=== PATIENT | male | born 1985 | race Caucasian/White ===

== ENCOUNTER 2016-10-15 18:03 | Inpatient (IN) | payer MEDICAID ==
[2016-10-15 18:03] VITALS: BMI 21.4
[2016-10-15] MEDS ORDERED: Sodium Chloride 0.9% 1,000 ML ONE (18:50)
[2016-10-15] MEDS ORDERED: Sodium Chloride 0.9% 1,000 ML IV ONE ×2 (18:57→19:52)
[2016-10-15 19:06] LABS: BASO % 0.2 % (0.0-2.0); HEMATOCRIT 46.2 % (35.0-51.0); LYMPH # 1.2 K/uL (1.0-4.3); LYMPH % 9.2 % (20.0-40.0); MEAN CELL VOLUME 89.6 fL (80.0-94.0); MEAN CORPUSCULAR HEMOGLOBIN 28.9 pg (27.0-31.0); MEAN CORPUSCULAR HGB CONC 32.2 g/dL (33.0-37.0); MEAN PLATELET VOLUME 10.4 fL (7.2-11.7); MONO # 0.3 K/uL (0.0-0.8); MONO % 2.5 % (0.0-10.0); PLATELET COUNT 298 K/uL (130-400); RED CELL DISTRIBUTION WIDTH 14.4 % (11.5-14.5)
[2016-10-15 19:15] LABS: CHLORIDE 93 mmol/L (98-107); SODIUM 138 mmol/L (132-148)
[2016-10-15 19:16] LABS: INR 1.1; POTASSIUM 4.9 mmol/L (3.6-5.2)
[2016-10-15 19:17] LABS: AST/SGOT 25 U/L (17-59); BILIRUBIN,TOTAL 1.3 mg/dL (0.2-1.3); CARBON DIOXIDE 22 mmol/L (22-30); GFR AFRICAN-AMERICAN > 60
[2016-10-15 19:18] LABS: ALB/GLOB RATIO 1.7 (1.0-2.1); ALKALINE PHOSPHATASE 108 U/L (38-126); ALT/SGPT 23 U/L (21-72); BLOOD UREA NITROGEN 34 mg/dL (9-20); CALCIUM 9.4 mg/dl (8.6-10.4); MAGNESIUM 2.2 mg/dL (1.6-2.3); PHOSPHOROUS 4.6 mg/dL (2.5-4.5); TOTAL PROTEIN 8.6 g/dL (6.3-8.3)
[2016-10-15 19:19] LABS: ALCOHOL SERUM < 10 mg/dl (0-10)
[2016-10-15 19:20] LABS: GLUCOSE,RANDOM 501 mg/dL (75-110)
[2016-10-15 19:30] LABS: NEUTROPHIL 91 % (50-75); TOTAL CELLS COUNTED 100
[2016-10-15] MEDS ORDERED: (Novolin R) Insulin Human Regular 100 units/ml vial IV STA (19:51)
[2016-10-15] MEDS ORDERED: (Novolin R) Insulin Human Regular 100 units/ml vial ONE (20:00)
[2016-10-15 20:31] LABS: ABG ALLEN TEST PO; DRAW SITE LR
[2016-10-15] MEDS ORDERED: Morphine 4 MG/ML VIAL ONE (21:10)
[2016-10-15] MEDS ORDERED: Iodixanol 320 MG/ML 100 ML BOTTLE IV ONE (21:24)
--- NOTE | 2016-10-15 22:18 | CT ---
EXAM: CT Abdomen and Pelvis With Intravenous Contrast CLINICAL HISTORY: 31 years old, male; Pain; Abdominal pain; Generalized TECHNIQUE: Axial computed tomography images of the abdomen and pelvis with intravenous contrast. This CT exam was performed using one or more of the following dose reduction techniques: automated exposure control, adjustment of the mA and/or kV according to patient size, and/or use of iterative reconstruction technique. Coronal and sagittal reformatted images were created and reviewed. CONTRAST: 100 mL of [id number] administered intravenously. COMPARISON: None FINDINGS: Lower thorax: The bilateral lung bases are clear. ABDOMEN: Liver: No acute findings. Gallbladder and bile ducts: The gallbladder is only minimally distended, without calcified stones. No significant intra- or extrahepatic biliary ductal dilation. Pancreas: Enhances homogeneously. No ductal dilation. No discrete mass. Spleen: No acute findings. Adrenals: No acute findings. Kidneys and ureters: No acute findings. No hydronephrosis or renal calculi. No discrete solid mass. PELVIS: Bladder: The bladder is moderately distended, but otherwise unremarkable. Reproductive: No acute findings. Appendix: The appendix is of normal caliber (series 601, image 54; series 2, image 56). ABDOMEN and PELVIS: Stomach and bowel: No obstruction. Fluid-filled small bowel wall thickening but no surrounding inflammation or fluid to confirm an acute enteritis. Peritoneum: No significant fluid collection. No free air. Lymph nodes: No pathologically enlarged lymph nodes. Vasculature: Unremarkable. Bones: No acute fracture. IMPRESSION: Mural thickening within multiple loops of fluid-filled small bowel, without surrounding inflammation or fluid to confirm an enteritis. Normal appendix.
--- NOTE | 2016-10-15 23:16 | C.PDOC ---
Time Seen by Provider: 10/15/16 18:43 Chief Complaint (Nursing): Abdominal Pain History Per: Patient, Family Onset/Duration Of Symptoms: Days (1) Current Symptoms Are (Timing): Still Present Severity: Moderate Location Of Pain/Discomfort: Epigastric Quality Of Discomfort: Unable To Describe, "Pain" Associated Symptoms: Nausea, Vomiting, Diarrhea Exacerbating Factors: Food Alleviating Factors: None Additional History Per: Prior Records Past Medical History Reviewed: Historical Data, Nursing Documentation, Vital Signs Vital Signs: Last Vital Signs Temp 97.9 F 10/15/16 18:12 Pulse 131 H 10/15/16 18:12 Resp 18 10/15/16 18:12 BP 176/73 H 10/15/16 18:12 Pulse Ox 96 10/15/16 18:12 - Medical History PMH: Diabetes, Gastritis, Pancreatitis Surgical History: No Surg Hx, Endoscopy - [facility] Procedures ESOPHAGOGASTRODUODENOSCOPY [EGD] W/CLOSED BIOPSY (07/30/13) Family History: States: Unknown Family Hx, Diabetes - Social History Hx Tobacco Use: Yes Hx Alcohol Use: No Hx Substance Use: No - Immunization History Hx Tetanus Toxoid Vaccination: No Hx Influenza Vaccination: Yes (2014) Hx Pneumococcal Vaccination: No Review Of Systems Except As Marked, All Systems Reviewed And Found Negative. Constitutional: Positive for: Malaise. Negative for: Fever Cardiovascular: Negative for: Chest Pain Respiratory: Negative for: Shortness of Breath, Hemoptysis Gastrointestinal: Positive for: Nausea, Vomiting, Abdominal Pain, Diarrhea. Negative for: Melena, Hematochezia, Hematemesis Genitourinary: Negative for: Dysuria Musculoskeletal: Negative for: Neck Pain, Back Pain Skin: Negative for: Rash Neurological: Negative for: Weakness, Numbness, Seizures, Headache Physical Exam - Physical Exam Appears: In Acute Distress Skin: Normal Color, Warm, Dry, No Rash Head: Atraumatic, Normacephalic Eye(s): bilateral: PERRL, EOMI Oral Mucosa: Dry Neck: Normal ROM, Supple Cardiovascular: Rhythm Regular Respiratory: Normal Breath Sounds, No Accessory Muscle Use Gastrointestinal/Abdominal: Soft, Tenderness, No Distention Back: No CVA Tenderness Extremity: Normal ROM Neurological/Psych: Oriented x3, Normal Motor, Normal Sensation ED Course And Treatment - Laboratory Results Result Diagrams: 10/15/16 19:10/15/16 19:02 Lab Interpretation: Abnormal Interpretation Of Abnormal: Hyperglycemia. O2 Sat by Pulse Oximetry: 96 Pulse Ox Interpretation: Normal - CT Scan/US CT abdomen/pelvis Other Rad Studies (CT/US): Read By Radiologist, Radiology Report Reviewed CT/US Interpretation: IMPRESSION: . Mural thickening within multiple loops of fluid-filled small bowel, without. surrounding inflammation or fluid to confirm an enteritis. Normal appendix. Progress - Interventions Interventions:: Observation, Intravenous fluid - Medications Administered Intravenous: Antiemetic, H-2 marni, Opiate, Other (Insulin) - Data Reviewed Data Reviewed: Lab, Diagnostic imaging, Old records - Patient Status Patient status: Partially improved - Critical Care Citical Care: Excluding Proc Time Critical Care Time: 60 minutes - Continuity of Care Discussed patient case with:: Patient, Family-HIPPA compliant, ED Nurse, On- call PMD-pt unassigned Disposition Discussed With : Marshall Valentine Comment: He accepted pt on his service and gave admission orders to the nurse. Doctor Will See Patient In The: Hospital Counseled Patient/Family Regarding: Studies Performed, Diagnosis - Disposition Disposition: HOSPITALIZED Disposition Time: 23:28 Condition: FAIR - POA Present On Arrival: Poor Glycemic Control - Clinical Impression Clinical Impression: Abdominal pain, Dehydration, Nausea, vomiting, and diarrhea, Hyperglycemia
[2016-10-16] MEDS: (Novolin R) Insulin Human Regular 100 units/ml vial SC SCH ×5 (06:49→22:24)
[2016-10-16 10:13] LABS: RBC URINE < 1 /hpf (0-3); URINE BILIRUBIN NEGATIVE (NEGATIVE); URINE BLOOD NEGATIVE (NEGATIVE); URINE COLOR Straw (YELLOW); URINE GLUCOSE (UA) 3+ mg/dL (Normal); URINE KETONE 2+ mg/dL (NEGATIVE); URINE LEUKOCYTE ESTERASE NEG Leu/uL (Negative); URINE PROTEIN NEGATIVE (NEGATIVE); URINE UROBILINOGEN NORMAL mg/dL (0.2-1.0); WBC URINE < 1 /hpf (0-5)
[2016-10-16] MEDS: Sodium Chloride 0.45% 1,000 ML IV SCH (10:26)
[2016-10-16 11:40] LABS: BASO % 0.3 % (0.0-2.0); HEMATOCRIT 43.5 % (35.0-51.0); LYMPH # 1.7 K/uL (1.0-4.3); LYMPH % 11.8 % (20.0-40.0); MEAN CELL VOLUME 90.9 fL (80.0-94.0); MEAN CORPUSCULAR HEMOGLOBIN 29.4 pg (27.0-31.0); MEAN CORPUSCULAR HGB CONC 32.3 g/dL (33.0-37.0); MEAN PLATELET VOLUME 10.1 fL (7.2-11.7); MONO # 0.9 K/uL (0.0-0.8); MONO % 6.4 % (0.0-10.0); NRBC % 0.1 % (0.0-2.0); RED CELL DISTRIBUTION WIDTH 14.7 % (11.5-14.5); WHITE BLOOD COUNT 14.3 K/uL (4.8-10.8)
[2016-10-16 11:51] LABS: CHLORIDE 100 mmol/L (98-107)
[2016-10-16 11:52] LABS: POTASSIUM 4.3 mmol/L (3.6-5.2); SODIUM 139 mmol/L (132-148)
[2016-10-16 11:54] LABS: ALB/GLOB RATIO 1.4 (1.0-2.1); AST/SGOT 29 U/L (17-59); BILIRUBIN,TOTAL 1.1 mg/dL (0.2-1.3); BLOOD UREA NITROGEN 24 mg/dL (9-20); CARBON DIOXIDE 14 mmol/L (22-30); GFR AFRICAN-AMERICAN > 60; TOTAL PROTEIN 7.3 g/dL (6.3-8.3)
[2016-10-16 11:55] LABS: ALKALINE PHOSPHATASE 104 U/L (38-126); ALT/SGPT 21 U/L (21-72); CALCIUM 8.6 mg/dl (8.6-10.4); GLUCOSE,RANDOM 284 mg/dL (75-110)
--- NOTE | 2016-10-16 11:57 | CP.PCM.CON ---
<Monico Nguyen - Last Filed: 10/16/16 12:57> History of Present Illness - History of Present Illness History of Present Illness: PGY4 GI Fellow Consult Note Patient is a 31yo male with PMHx significant for DM, severe gastroparesis, pancreatitis H pylori gastritis (untreated) who presented to the ED with complaint of abdominal pain. In the days leading up to admission patient admitted to constipation but otherwise felt fine. He does note that 2-3 days prior to admission he began noticing hyperglycemia on finger sticks at home. The day before admission he developed diffuse abdominal cramping, 3-4 episodes of loose watery stool and nausea with nonbloody emesis. As symptoms worsened, he came to the hospital for further evaluation. Earlier this morning, patient was asymptomatic and denied any complaints however on returning to his room with Dr Garvin, he is very uncomfortable in bed and states he again has abdominal pain. He does not take any medications for gastroparesis and does not follow with a GI doctor as an outpatient. Currently, no diarrhea, fever, chills. Denies sick contacts, recent antibiotic use, recent travel. PMHx: See HPI PSHx: Denies FHx: Mother - DM Social: +tobacco use, +EtOH use, denies illicit drug use Endo: 07/2013 - EGD - gastritis with H pylori + on biopsy Review of Systems - Constitutional Constitutional: absent: Anorexia, Chills, Fever, Weight Gain, Weight Loss - EENT Eyes: absent: Change in Vision Nose/Mouth/Throat: absent: Sore Throat - Cardiovascular Cardiovascular: absent: Chest Pain, Diaphoresis, Edema - Respiratory Respiratory: absent: Cough, Dyspnea, Excessive Mucous Production - Gastrointestinal Gastrointestinal: Abdominal Pain, Change in Stool Character, Cramping, Diarrhea , Nausea, Vomiting. absent: Belching, Bloating, Dyspepsia, Dysphagia, Early Satiety, Hematemesis, Hematochezia, Melena - Musculoskeletal Musculoskeletal: absent: Back Pain, Neck Pain - Integumentary Integumentary: absent: New Lesions, Rash - Neurological Neurological: absent: Dizziness, Numbness, Focal Weakness - Psychiatric Psychiatric: absent: Anxiety, Depression - Endocrine Endocrine: absent: Polydipsia, Polyphagia, Polyuria - Hematologic/Lymphatic Hematologic: absent: Easy Bleeding, Easy Bruising, Lymphadenopathy Past Patient History - Tetanus Immunizations Tetanus Immunization: Unknown - Past Medical History & Family History Past Medical History?: Yes - Past Social History Smoking Status: Light Smoker < 10 Cigarettes Daily - CARDIAC Hx Cardiac Disorders: No - PULMONARY Hx Respiratory Disorders: No - NEUROLOGICAL Hx Neurological Disorder: No - HEENT Hx HEENT Problems: No - RENAL Hx Chronic Kidney Disease: No - ENDOCRINE/METABOLIC Hx Endocrine Disorders: Yes Hx Diabetes Mellitus Type 1: Yes (since age of 17) - HEMATOLOGICAL/ONCOLOGICAL Hx Blood Disorders: No - INTEGUMENTARY Hx Dermatological Problems: No - MUSCULOSKELETAL/RHEUMATOLOGICAL Hx Musculoskeletal Disorders: Yes Hx Falls: Yes - GASTROINTESTINAL Hx Gastrointestinal Disorders: Yes Hx Gastritis: Yes Hx Pancreatitis: Yes - GENITOURINARY/GYNECOLOGICAL Hx Genitourinary Disorders: No - PSYCHIATRIC Hx Psychophysiologic Disorder: No Hx Substance Use: No - SURGICAL HISTORY Hx Surgeries: Yes - ANESTHESIA Hx Anesthesia: Yes Hx Anesthesia Reactions: No Hx Malignant Hyperthermia: No Meds Allergies/Adverse Reactions: Allergies Allergy/AdvReac Type Severity Reaction Status Date / Time No Known Allergies Allergy Verified 08/22/15 12:59 - Medications Medications: Current Medications Sodium Chloride (Sodium Chloride 0.45%) 1,000 mls @ 100 mls/hr IV .Q10H JULIANE Last Admin: 10/16/16 10:26 Dose: 100 mls/hr Insulin Glargine (Lantus) 25 unit SC HS JULIANE Insulin Human Regular (Novolin R) 0 unit SC ACHS JULIANE PRN Reason: Protocol Last Admin: 10/16/16 11:47 Dose: 6 unit Metoclopramide HCl (Reglan) 10 mg IVP ACHS JULIANE Morphine Sulfate (Morphine) 2 mg IVP Q6 PRN PRN Reason: for abdominal pain Last Admin: 10/16/16 10:21 Dose: 2 mg Pneumococcal Polyvalent Vaccine (Pneumovax 23 Vaccine) 0.5 ml IM .ONCE ONE Stop: 10/18/16 10:01 Physical Exam - Constitutional Appears: Non-toxic, No Acute Distress - Eye Exam Eye Exam: EOMI, PERRL - ENT Exam ENT Exam: Mucous Membranes Moist - Respiratory Exam Respiratory Exam: Clear to Auscultation Bilateral. absent: Rales, Rhonchi, Wheezes - Cardiovascular Exam Cardiovascular Exam: RRR, +S1, +S2 - GI/Abdominal Exam GI & Abdominal Exam: Normal Bowel Sounds, Soft. absent: Distended, Firm, Guarding, Organomegaly, Rigid, Tenderness - Extremities Exam Extremities exam: Positive for: normal inspection. Negative for: pedal edema - Neurological Exam Neurological exam: Alert, Oriented x3 - Psychiatric Exam Psychiatric exam: Normal Affect, Normal Mood - Skin Skin Exam: Dry, Warm Results - Vital Signs Recent Vital Signs: Last Vital Signs Temp 98.5 F 10/16/16 01:05 Pulse 85 10/16/16 01:05 Resp 20 10/16/16 01:05 BP 132/62 10/16/16 01:05 Pulse Ox 96 10/16/16 01:05 - Labs Result Diagrams: 10/16/16 11:23 10/16/16 11:23 Labs: Laboratory Results - last 24 hr 10/16/16 10/16/16 10/16/16 00:10 06:35 07:09 WBC RBC Hgb Hct MCV MCH MCHC RDW Plt Count MPV Neut % (Auto) Lymph % (Auto) [place] % (Auto) Eos % (Auto) Baso % (Auto) Neut # Lymph # [place] # Eos # Baso # POC Glucose (mg/dL) 338 H 344 H 348 H Urine Color Urine Clarity Urine pH Ur Specific [place] Urine Protein Urine Glucose (UA) Urine Ketones Urine Blood Urine Nitrate Urine Bilirubin Urine Urobilinogen Ur Leukocyte Esterase Urine WBC (Auto) Urine RBC (Auto) Ur Squamous Epith Cells Urine Opiates Screen Urine Methadone Screen Ur Barbiturates Screen Ur Phencyclidine Scrn Ur Amphetamines Screen U Benzodiazepines Scrn U Oth Cocaine Metabols U Cannabinoids Screen 10/16/16 10/16/16 09:49 11:23 WBC 14.3 H RBC 4.79 Hgb 14.1 Hct 43.5 MCV 90.9 MCH 29.4 MCHC 32.3 L RDW 14.7 H Plt Count 285 MPV 10.1 Neut % (Auto) 81.5 H Lymph % (Auto) 11.8 L [place] % (Auto) 6.4 Eos % (Auto) 0.0 Baso % (Auto) 0.3 Neut # 11.7 H Lymph # 1.7 Surry # 0.9 H Eos # 0.0 Baso # 0.0 POC Glucose (mg/dL) Urine Color Straw Urine Clarity Clear Urine pH 5.0 Ur Specific [place] 1.028 Urine Protein Negative Urine Glucose (UA) 3+ H Urine Ketones 2+ H Urine Blood Negative Urine Nitrate Negative Urine Bilirubin Negative Urine Urobilinogen Normal Ur Leukocyte Esterase Neg Urine WBC (Auto) < 1 Urine RBC (Auto) < 1 Ur Squamous Epith Cells < 1 Urine Opiates Screen Positive Urine Methadone Screen Negative Ur Barbiturates Screen Negative Ur Phencyclidine Scrn Negative Ur Amphetamines Screen Negative U Benzodiazepines Scrn Negative U Oth Cocaine Metabols Negative U Cannabinoids Screen Negative Assessment & Plan - Assessment and Plan (Free Text) Assessment: Patient is a 31yo male with PMHx significant for DM, severe gastroparesis, pancreatitis H pylori gastritis (untreated) who presented to the ED with complaint of abdominal pain. -Abdominal pain, possibly 2/2 resolving DKA episode vs gastroparesis -Uncontrolled DM -H pylori gastritis Plan: -Reglan 10mg IV QACHS -Advance diet as tolerated; would give 6 small meals, low fat, soft -Check H pylori stool Ag, states he has never been treated and not currently on acid suppressive therapy -Control DM; pt has elevated anion gap with large ketones/hyperglycemia -Continue to monitor clinical course - Date & Time Date: 10/16/16 Time: 10:00 <Mina Garvin MD - Last Filed: 10/16/16 19:07> Meds - Medications Medications: Current Medications Sodium Chloride (Sodium Chloride 0.45%) 1,000 mls @ 100 mls/hr IV .Q10H JULIANE Last Admin: 10/16/16 10:26 Dose: 100 mls/hr Insulin Glargine (Lantus) 25 unit SC HS JULIANE Insulin Human Regular (Novolin R) 0 unit SC ACHS JULIANE PRN Reason: Protocol Last Admin: 10/16/16 17:48 Dose: 6 unit Metoclopramide HCl (Reglan) 10 mg IVP ACHS JULIANE Last Admin: 10/16/16 17:41 Dose: 10 mg Morphine Sulfate (Morphine) 2 mg IVP Q6 PRN PRN Reason: for abdominal pain Last Admin: 10/16/16 17:39 Dose: 2 mg Pneumococcal Polyvalent Vaccine (Pneumovax 23 Vaccine) 0.5 ml IM .ONCE ONE Stop: 10/18/16 10:01 Results - Vital Signs Recent Vital Signs: Last Vital Signs Temp 98.5 F 10/16/16 16:26 Pulse 85 10/16/16 16:35 Resp 19 10/16/16 16:26 BP 116/65 10/16/16 16:26 Pulse Ox 100 10/16/16 16:26 - Labs Result Diagrams: 10/16/16 11:23 10/16/16 11:23 Labs: Laboratory Results - last 24 hr 10/16/16 10/16/16 10/16/16 00:10 06:35 07:09 WBC RBC Hgb Hct MCV MCH MCHC RDW Plt Count MPV Neut % (Auto) Lymph % (Auto) [place] % (Auto) Eos % (Auto) Baso % (Auto) Neut # Lymph # [place] # Eos # Baso # Sodium Potassium Chloride Carbon Dioxide Anion Gap BUN Creatinine Est GFR ( Amer) Est GFR (Non-Af Amer) POC Glucose (mg/dL) 338 H 344 H 348 H Random Glucose Calcium Total Bilirubin AST ALT Alkaline Phosphatase Total Protein Albumin Globulin Albumin/Globulin Ratio Urine Color Urine Clarity Urine pH Ur Specific [place] Urine Protein Urine Glucose (UA) Urine Ketones Urine Blood Urine Nitrate Urine Bilirubin Urine Urobilinogen Ur Leukocyte Esterase Urine WBC (Auto) Urine RBC (Auto) Ur Squamous Epith Cells Urine Opiates Screen Urine Methadone Screen Ur Barbiturates Screen Ur Phencyclidine Scrn Ur Amphetamines Screen U Benzodiazepines Scrn U Oth Cocaine Metabols U Cannabinoids Screen 10/16/16 10/16/16 10/16/16 09:49 11:18 11:23 WBC 14.3 H RBC 4.79 Hgb 14.1 Hct 43.5 MCV 90.9 MCH 29.4 MCHC 32.3 L RDW 14.7 H Plt Count 285 MPV 10.1 Neut % (Auto) 81.5 H Lymph % (Auto) 11.8 L [place] % (Auto) 6.4 Eos % (Auto) 0.0 Baso % (Auto) 0.3 Neut # 11.7 H Lymph # 1.7 Surry # 0.9 H Eos # 0.0 Baso # 0.0 Sodium 139 Potassium 4.3 Chloride 100 Carbon Dioxide 14 L Anion Gap 29 H BUN 24 H Creatinine 1.1 Est GFR ( Amer) > 60 Est GFR (Non-Af Amer) > 60 POC Glucose (mg/dL) 301 H Random Glucose 284 H Calcium 8.6 Total Bilirubin 1.1 AST 29 ALT 21 Alkaline Phosphatase 104 Total Protein 7.3 Albumin 4.3 Globulin 3.0 Albumin/Globulin Ratio 1.4 Urine Color Straw Urine Clarity Clear Urine pH 5.0 Ur Specific [place] 1.028 Urine Protein Negative Urine Glucose (UA) 3+ H Urine Ketones 2+ H Urine Blood Negative Urine Nitrate Negative Urine Bilirubin Negative Urine Urobilinogen Normal Ur Leukocyte Esterase Neg Urine WBC (Auto) < 1 Urine RBC (Auto) < 1 Ur Squamous Epith Cells < 1 Urine Opiates Screen Positive Urine Methadone Screen Negative Ur Barbiturates Screen Negative Ur Phencyclidine Scrn Negative Ur Amphetamines Screen Negative U Benzodiazepines Scrn Negative U Oth Cocaine Metabols Negative U Cannabinoids Screen Negative 10/16/16 17:24 WBC RBC Hgb Hct MCV MCH MCHC RDW Plt Count MPV Neut % (Auto) Lymph % (Auto) [place] % (Auto) Eos % (Auto) Baso % (Auto) Neut # Lymph # [place] # Eos # Baso # Sodium Potassium Chloride Carbon Dioxide Anion Gap BUN Creatinine Est GFR ( Amer) Est GFR (Non-Af Amer) POC Glucose (mg/dL) 321 H Random Glucose Calcium Total Bilirubin AST ALT Alkaline Phosphatase Total Protein Albumin Globulin Albumin/Globulin Ratio Urine Color Urine Clarity Urine pH Ur Specific [place] Urine Protein Urine Glucose (UA) Urine Ketones Urine Blood Urine Nitrate Urine Bilirubin Urine Urobilinogen Ur Leukocyte Esterase Urine WBC (Auto) Urine RBC (Auto) Ur Squamous Epith Cells Urine Opiates Screen Urine Methadone Screen Ur Barbiturates Screen Ur Phencyclidine Scrn Ur Amphetamines Screen U Benzodiazepines Scrn U Oth Cocaine Metabols U Cannabinoids Screen Attending/Attestation - Attestation I have personally seen and examined this patient.: Yes I have fully participated in the care of the patient.: Yes I have reviewed all pertinent clinical information: Yes Notes (Text): 10/16/16 19:05 Patient seen and examined with GI fellow on rounds. 31 yr old male with PMHx significant for DM, severe gastroparesis, pancreatitis, H pylori gastritis ( untreated) who presented to the ED with complaint of abdominal pain possibly 2/ 2 resolving DKA episode vs gastroparesis. Emptying study in 07/2013 showed sever gastroparesis. H pylori on last EGD but probably untreated. Will send h pylori stool antigen. Strict glycemic control and will start Reglan
--- NOTE | 2016-10-16 14:34 | CP.PCM.HP ---
History of Present Illness - History of Present Illness History of Present Illness: COMPREHENSIVE HISTORY & PHYSICAL EXAM HPI ADMITTED WITH UNCONTROLLED SUGAR WITH KETONES AND HIGH AG A/W ABD. PAIN NO N/V PAST HIST. IDDM , PACREATIC CYST/GASTROPARESIS PERSONAL HIST: Smoking. Y Alcohol. Y Allergy N Travel_- . FAMILY HIST : ROS : Constitutional: Negative for weight change, chills, night sweats, fatigue and usage of assist device. Eyes: Negative for redness, swelling, itching, discharge, vision changes, blurry vision, double vision, glaucoma, cataracts, Ears: Negative for hearing loss, ringing, , tinnitus, vertigo Nose: Negative for rhinorrhea, stuffiness, sniffing, itching, postnasal drip, discoloration, nasal congestion and epistaxis. Throat: Negative for throat clearing, sore throat, hoarseness, difficulty swallowing and difficulty speaking. Respiratory: Negative for cough, chest tightness, sputum or phlegm, chronic cough, hemoptysis, wheezing, snoring at night, pleuritic chest pain and daytime somnolence. Cardiovascular: Negative for chest pain, palpitations, orthopnea, PND, Edema of legs, leg cramps, angina, claudication, , irregular heartbeat, Neurology: Negative for irritability, muscle weakness, numbness and tingling, seizures, tremors, migraines, slurred speech, syncope, memory loss, mood changes , recurrent headaches Gastrointestinal: Negative for difficulty swallowing, diarrhea, constipation, black stools, rectal bleeding, nausea, flatulence, reflux, poor appetite, changes in bowel habits, a Genitourinary: Negative for frequent urination, hematuria, discharge, incontinence, urinary retention, frequent UTI, Psychiatric: Negative for depression, anxiety/panic, suicidal tendencies, Musculoskeletal: Negative for swollen joints, back pain, , neck pain, morning stiffness of joints, . Skin: Negative for rash, ulcers, itching, dry skin and pigmented lesions. P/E: Constitutional: Appears stated age and in no apparent distress. Head: Normocephalic. Ears: External ear canals patent without inflammation. Tympanic membranes intact with normal light reflex and landmark. Eyes: Pupils are central, bilaterally equal, symmetrical and reacts to light with normal movements and no icterus or pallor. Nose: External nares are patent. Mucosa is pink Mouth-Throat: Good general appearance and condition. No post-pharyngeal/oropharyngeal erythema and tonsillar hypertrophy. Good dental hygiene. Neck-Lymphatic: Neck is supple with normal ROM, no thyromegaly, lymph nodes or masses. JVD is normal with no carotid bruit. Lungs: Clear to percussion and auscultation with bilateral normal air entry. Cardiovascular: S1 and S2 are normal with no murmurs, gallops and rub. GI Exam: No hepatomegaly. Abdomen is soft and non-tender. No Organomegaly , masses or hernias are evident and bowel sounds are normal and active. Neurology: Higher function and all cranial nerves intact, with no gross motor or sensory deficit. Superficial and deep reflexes are normal with downwards planters. No cerebellar deficit with normal gait. Musculoskeletal: No tender spots with normal curvature of the spine with no swelling or restricted ROM of the small and large joints. Extremities: Homans sign absent. Intact pulses with no pitting edema, calf tenderness or skin color changes. Skin: No rash, eruptions or abnormal skin pigmentation LAB/RADIOLOGY: ASSESMENT : DKA GASTROPARESIS H/O PANCREATIS PLAN: IV FLUID/INSULIN GI EVAL Present on Admission - Present on Admission Any Indicators Present on Admission: No Past Patient History - Tetanus Immunizations Tetanus Immunization: Unknown - Past Medical History & Family History Past Medical History?: Yes - Past Social History Smoking Status: Light Smoker < 10 Cigarettes Daily - CARDIAC Hx Cardiac Disorders: No - PULMONARY Hx Respiratory Disorders: No - NEUROLOGICAL Hx Neurological Disorder: No - HEENT Hx HEENT Problems: No - RENAL Hx Chronic Kidney Disease: No - ENDOCRINE/METABOLIC Hx Endocrine Disorders: Yes Hx Diabetes Mellitus Type 1: Yes (since age of 17) - HEMATOLOGICAL/ONCOLOGICAL Hx Blood Disorders: No - INTEGUMENTARY Hx Dermatological Problems: No - MUSCULOSKELETAL/RHEUMATOLOGICAL Hx Musculoskeletal Disorders: Yes Hx Falls: Yes - GASTROINTESTINAL Hx Gastrointestinal Disorders: Yes Hx Gastritis: Yes Hx Pancreatitis: Yes - GENITOURINARY/GYNECOLOGICAL Hx Genitourinary Disorders: No - PSYCHIATRIC Hx Psychophysiologic Disorder: No Hx Substance Use: No - SURGICAL HISTORY Hx Surgeries: Yes - ANESTHESIA Hx Anesthesia: Yes Hx Anesthesia Reactions: No Hx Malignant Hyperthermia: No Meds Home Medications: Home Medication List Medication Instructions Recorded Confirmed Type Metoclopramide [Reglan] 10 mg PO ACTID #30 tab 10/18/16 Rx Allergies/Adverse Reactions: Allergies Allergy/AdvReac Type Severity Reaction Status Date / Time No Known Allergies Allergy Verified 10/25/16 18:17 Results - Vital Signs Recent Vital Signs: Last Vital Signs Temp 98.5 F 10/16/16 01:05 Pulse 85 10/16/16 01:05 Resp 20 10/16/16 01:05 BP 132/62 10/16/16 01:05 Pulse Ox 96 10/16/16 01:05 - Labs Result Diagrams: 10/17/16 06:03 10/17/16 06:03 Labs: Laboratory Results - last 24 hr 10/16/16 10/16/16 10/16/16 00:10 06:35 07:09 WBC RBC Hgb Hct MCV MCH MCHC RDW Plt Count MPV Neut % (Auto) Lymph % (Auto) Luce % (Auto) Eos % (Auto) Baso % (Auto) Neut # Lymph # Luce # Eos # Baso # Sodium Potassium Chloride Carbon Dioxide Anion Gap BUN Creatinine Est GFR ( Amer) Est GFR (Non-Af Amer) POC Glucose (mg/dL) 338 H 344 H 348 H Random Glucose Calcium Total Bilirubin AST ALT Alkaline Phosphatase Total Protein Albumin Globulin Albumin/Globulin Ratio Urine Color Urine Clarity Urine pH Ur Specific [place] Urine Protein Urine Glucose (UA) Urine Ketones Urine Blood Urine Nitrate Urine Bilirubin Urine Urobilinogen Ur Leukocyte Esterase Urine WBC (Auto) Urine RBC (Auto) Ur Squamous Epith Cells Urine Opiates Screen Urine Methadone Screen Ur Barbiturates Screen Ur Phencyclidine Scrn Ur Amphetamines Screen U Benzodiazepines Scrn U Oth Cocaine Metabols U Cannabinoids Screen 10/16/16 10/16/16 09:49 11:23 WBC 14.3 H RBC 4.79 Hgb 14.1 Hct 43.5 MCV 90.9 MCH 29.4 MCHC 32.3 L RDW 14.7 H Plt Count 285 MPV 10.1 Neut % (Auto) 81.5 H Lymph % (Auto) 11.8 L Luce % (Auto) 6.4 Eos % (Auto) 0.0 Baso % (Auto) 0.3 Neut # 11.7 H Lymph # 1.7 Luce # 0.9 H Eos # 0.0 Baso # 0.0 Sodium 139 Potassium 4.3 Chloride 100 Carbon Dioxide 14 L Anion Gap 29 H BUN 24 H Creatinine 1.1 Est GFR ( Amer) > 60 Est GFR (Non-Af Amer) > 60 POC Glucose (mg/dL) Random Glucose 284 H Calcium 8.6 Total Bilirubin 1.1 AST 29 ALT 21 Alkaline Phosphatase 104 Total Protein 7.3 Albumin 4.3 Globulin 3.0 Albumin/Globulin Ratio 1.4 Urine Color Straw Urine Clarity Clear Urine pH 5.0 Ur Specific [place] 1.028 Urine Protein Negative Urine Glucose (UA) 3+ H Urine Ketones 2+ H Urine Blood Negative Urine Nitrate Negative Urine Bilirubin Negative Urine Urobilinogen Normal Ur Leukocyte Esterase Neg Urine WBC (Auto) < 1 Urine RBC (Auto) < 1 Ur Squamous Epith Cells < 1 Urine Opiates Screen Positive Urine Methadone Screen Negative Ur Barbiturates Screen Negative Ur Phencyclidine Scrn Negative Ur Amphetamines Screen Negative U Benzodiazepines Scrn Negative U Oth Cocaine Metabols Negative U Cannabinoids Screen Negative
[2016-10-16 23:42] VITALS: RESP 20
[2016-10-17 06:19] LABS: BASO % 0.3 % (0.0-2.0); HEMATOCRIT 44.6 % (35.0-51.0); LYMPH # 1.2 K/uL (1.0-4.3); LYMPH % 11.4 % (20.0-40.0); MEAN CORPUSCULAR HEMOGLOBIN 29.4 pg (27.0-31.0); MEAN CORPUSCULAR HGB CONC 32.3 g/dL (33.0-37.0); MEAN PLATELET VOLUME 10.1 fL (7.2-11.7); MONO # 0.4 K/uL (0.0-0.8); MONO % 3.6 % (0.0-10.0); RED CELL DISTRIBUTION WIDTH 14.6 % (11.5-14.5); WHITE BLOOD COUNT 10.3 K/uL (4.8-10.8)
[2016-10-17 06:29] LABS: CHLORIDE 93 mmol/L (98-107)
[2016-10-17 06:30] LABS: POTASSIUM 4.6 mmol/L (3.6-5.2); SODIUM 136 mmol/L (132-148)
[2016-10-17 06:32] LABS: BILIRUBIN,DIRECT 0.5 mg/dL (0.0-0.4); BILIRUBIN,TOTAL 1.8 mg/dL (0.2-1.3); CARBON DIOXIDE 14 mmol/L (22-30); GFR AFRICAN-AMERICAN > 60
[2016-10-17 06:33] LABS: ALB/GLOB RATIO 1.4 (1.0-2.1); ALKALINE PHOSPHATASE 102 U/L (38-126); ALT/SGPT 25 U/L (21-72); AST/SGOT 23 U/L (17-59); BLOOD UREA NITROGEN 21 mg/dL (9-20); CALCIUM 8.2 mg/dl (8.6-10.4); GLUCOSE,RANDOM 362 mg/dL (75-110); TOTAL PROTEIN 7.2 g/dL (6.3-8.3)
[2016-10-17] MEDS: Sodium Chloride 0.45% 1,000 ML IV SCH ×3 (07:37→16:59)
--- NOTE | 2016-10-17 08:23 | CP.PCM.PN ---
<ChrissynasraMonico maxwell - Last Filed: 10/17/16 08:20> Subjective - Date & Time of Evaluation Date of Evaluation: 10/17/16 Time of Evaluation: 08:20 - Subjective Subjective: PGY4 GI Fellow Progress Note Patient seen and examined bedside this morning. The patient states that he is now constipated with difficulty passing stool over the past 48 hours. He is feeling better since the initiation of Reglan ACHS. Denies any nausea, vomiting , fever, chills. 12 system ROS performed and negative except where stated. Objective - Vital Signs/Intake and Output Vital Signs (last 24 hours): Temp Pulse Resp BP Pulse Ox 98.2 F 85 20 128/70 96 10/16/16 23:38 10/16/16 23:38 10/16/16 23:38 10/16/16 23:38 10/16/16 23:38 Intake and Output: 10/17/16 10/17/16 06:59 18:59 Intake Total 1100 Output Total 600 Balance 500 - Medications Medications: Current Medications Sodium Chloride (Sodium Chloride 0.45%) 1,000 mls @ 100 mls/hr IV .Q10H JULIANE Last Admin: 10/17/16 07:37 Dose: Not Given Insulin Glargine (Lantus) 25 unit SC HS JULIANE Insulin Human Regular (Novolin R) 0 unit SC ACHS JULIANE PRN Reason: Protocol Last Admin: 10/16/16 22:24 Dose: Not Given Metoclopramide HCl (Reglan) 10 mg IVP ACHS JULIANE Last Admin: 10/16/16 22:27 Dose: 10 mg Morphine Sulfate (Morphine) 2 mg IVP Q6 PRN PRN Reason: for abdominal pain Last Admin: 10/17/16 06:22 Dose: 2 mg Pneumococcal Polyvalent Vaccine (Pneumovax 23 Vaccine) 0.5 ml IM .ONCE ONE Stop: 10/18/16 10:01 - Labs Labs: 10/17/16 06:03 10/17/16 06:03 PT 12.5 SECONDS (9.7-12.2) H 10/15/16 19:02 INR 1.1 10/15/16 19:02 APTT 39 SECONDS (21-34) H 10/15/16 19:02 - Constitutional Appears: Non-toxic, No Acute Distress - Eye Exam Eye Exam: EOMI, PERRL - ENT Exam ENT Exam: Mucous Membranes Moist - Respiratory Exam Respiratory Exam: Clear to Ausculation Bilateral. absent: Rales, Rhonchi, Wheezes - Cardiovascular Exam Cardiovascular Exam: RRR, +S1, +S2 - GI/Abdominal Exam GI & Abdominal Exam: Soft, Tenderness (diffuse mild discomfort with palpation), Normal Bowel Sounds. absent: Distended, Firm, Guarding, Rigid, Organomegaly - Extremities Exam Extremities Exam: Normal Inspection. absent: Pedal Edema - Neurological Exam Neurological Exam: Alert, Awake, Oriented x3 - Psychiatric Exam Psychiatric exam: Normal Affect, Normal Mood - Skin Skin Exam: Dry, Warm Assessment and Plan - Assessment and Plan (Free Text) Assessment: Patient is a 31yo male with PMHx significant for DM, severe gastroparesis, pancreatitis H pylori gastritis (untreated) who presented to the ED with complaint of abdominal pain. -Abdominal pain, possibly 2/2 resolving DKA episode vs gastroparesis -Uncontrolled DM -H pylori gastritis Plan: -Encourage 6 small meals, low fat/soft -Start Miralax 17g PO QD for constipation -Continue Reglan 10mg IV QACHS -Check H pylori stool Ag, unknown status - dx in 2013 on EGD -Tight glycemic control -Continue to monitor clinical course <Mina Garvin MD - Last Filed: 10/17/16 12:09> Objective - Vital Signs/Intake and Output Vital Signs (last 24 hours): Temp Pulse Resp BP Pulse Ox 98.2 F 85 20 128/70 96 10/16/16 23:38 10/16/16 23:38 10/16/16 23:38 10/16/16 23:38 10/16/16 23:38 Intake and Output: 10/17/16 10/17/16 06:59 18:59 Intake Total 1100 Output Total 600 Balance 500 - Medications Medications: Current Medications Sodium Chloride (Sodium Chloride 0.45%) 1,000 mls @ 100 mls/hr IV .Q10H JULIANE Last Admin: 10/17/16 09:22 Dose: 100 mls/hr Insulin Glargine (Lantus) 25 unit SC HS JULIANE Insulin Human Regular (Novolin R) 0 unit SC ACHS JULIANE PRN Reason: Protocol Last Admin: 10/17/16 08:45 Dose: 6 unit Metoclopramide HCl (Reglan) 10 mg IVP ACHS JULIANE Last Admin: 10/17/16 09:16 Dose: 10 mg Morphine Sulfate (Morphine) 2 mg IVP Q6 PRN PRN Reason: for abdominal pain Last Admin: 10/17/16 06:22 Dose: 2 mg Pneumococcal Polyvalent Vaccine (Pneumovax 23 Vaccine) 0.5 ml IM .ONCE ONE Stop: 10/18/16 10:01 Polyethylene Glycol (Miralax) 17 gm PO DAILY [facility] Last Admin: 10/17/16 11:38 Dose: 17 gm - Labs Labs: 10/17/16 06:03 10/17/16 06:03 PT 12.5 SECONDS (9.7-12.2) H 10/15/16 19:02 INR 1.1 10/15/16 19:02 APTT 39 SECONDS (21-34) H 10/15/16 19:02 Attending/Attestation - Attestation I have personally seen and examined this patient.: Yes I have fully participated in the care of the patient.: Yes I have reviewed all pertinent clinical information, including history, physical exam and plan: Yes Notes (Text): 10/17/16 12:08 Patient seen and examined with GI fellow on rounds. 31 yr old male with PMHx significant for DM, severe gastroparesis, pancreatitis, H pylori gastritis ( untreated) who presented to the ED with complaint of abdominal pain possibly 2/ 2 resolving DKA episode vs gastroparesis. Emptying study in 07/2013 showed sever gastroparesis. H pylori on last EGD but probably untreated. Will send h pylori stool antigen. Strict glycemic control and Reglan has helped to resolve symptom of vomiting and nausea. Needs frequent small meals.
[2016-10-17] MEDS: (Novolin R) Insulin Human Regular 100 units/ml vial SC SCH ×4 (08:45→21:34)
[2016-10-17] MEDS: POLYETHYLENE GLYCOL 3350 17 GM/Dose PACKET PO SCH (11:38)
--- NOTE | 2016-10-17 13:51 | CP.PCM.PN ---
Subjective - Date & Time of Evaluation Date of Evaluation: 10/17/16 Time of Evaluation: 13:50 - Subjective Subjective: CHIEF COMPLAINTS TODAY : LESS ABD. PAIN SUGARS IN 300S ROS. HEENT : N. Resp : No cough, wheezing ,pleuritic CP ,or hemoptysis Cardio : No anginal CP, PND, orthopnea, palpitation GI : No abd.pain, n/v ,diarrhea or GI bleeding . [employer] : No headache, vertigo, focal deficit. Musculoskel : No joint swelling , Derm : No rash Psych : Normal affect. Ext : No swelling ,calf pain PE. Pt. is alert awake in no distress. V.S As noted in the chart Head ,ear nose,throat and eyes : Normal. Neck : Supple with normal carotids. Lungs: Clear air entry. Heart : S1 & S2 normal with S4. No murmur. Abd : Soft non tender with normal bowel sounds. Neuro : Moves all ext. with no localized deficit. Ext : No edema with intact pulses.Non tender calves Derm : No rashes or decubitus ulcer. LABS/RADIOLOGY: ASSESSMENT/PLAN : ADD LANTUS Objective - Vital Signs/Intake and Output Vital Signs (last 24 hours): Temp Pulse Resp BP Pulse Ox 98.2 F 85 20 128/70 96 10/16/16 23:38 10/16/16 23:38 10/16/16 23:38 10/16/16 23:38 10/16/16 23:38 - Medications Medications: Current Medications Sodium Chloride (Sodium Chloride 0.45%) 1,000 mls @ 100 mls/hr IV .Q10H JULIANE Last Admin: 10/17/16 09:22 Dose: 100 mls/hr Insulin Glargine (Lantus) 25 unit SC HS JULIANE Insulin Human Regular (Novolin R) 0 unit SC ACHS JULIANE PRN Reason: Protocol Last Admin: 10/17/16 12:50 Dose: 6 unit Metoclopramide HCl (Reglan) 10 mg IVP ACHS JULIANE Last Admin: 10/17/16 12:50 Dose: 10 mg Morphine Sulfate (Morphine) 2 mg IVP Q6 PRN PRN Reason: for abdominal pain Last Admin: 10/17/16 13:04 Dose: 2 mg Pneumococcal Polyvalent Vaccine (Pneumovax 23 Vaccine) 0.5 ml IM .ONCE ONE Stop: 10/18/16 10:01 Polyethylene Glycol (Miralax) 17 gm PO DAILY JULIANE Last Admin: 10/17/16 11:38 Dose: 17 gm - Labs Labs: 10/17/16 06:03 10/17/16 06:03 PT 12.5 SECONDS (9.7-12.2) H 10/15/16 19:02 INR 1.1 10/15/16 19:02 APTT 39 SECONDS (21-34) H 10/15/16 19:02
[2016-10-17] MEDS ORDERED: (Lantus) Insulin Glargine, Recombinant SC SCH ×2 (22:00)
[2016-10-18 08:13] VITALS: BP 156/87; PULSE 68; TEMP 98.3; O2SAT 100
--- NOTE | 2016-10-18 08:38 | CP.PCM.PN ---
<ChrissynasraalissaMonico - Last Filed: 10/18/16 08:34> Subjective - Date & Time of Evaluation Date of Evaluation: 10/18/16 Time of Evaluation: 06:45 - Subjective Subjective: PGY4 GI Fellow Progress Note Patient seen and examined bedside this morning. The patient admits to little sleep last night 2/2 abdominal pain, nausea and vomiting. Admitted to us that he had been between jobs and lost his insurance, thus there was a lapse in coverage and he was not taking care of himself. Denies any BM for 2-3 days, feels constipated. Tolerating small amounts of soup brought from home. 12 system ROS performed and negative except where stated. Objective - Vital Signs/Intake and Output Vital Signs (last 24 hours): Temp Pulse Resp BP Pulse Ox 98.3 F 68 20 156/87 H 100 10/18/16 08:12 10/18/16 08:12 10/18/16 08:12 10/18/16 08:12 10/18/16 08:12 Intake and Output: 10/18/16 10/18/16 06:59 18:59 Intake Total 430 Balance 430 - Medications Medications: Current Medications Sodium Chloride (Sodium Chloride 0.45%) 1,000 mls @ 100 mls/hr IV .Q10H JULIANE Last Admin: 10/17/16 16:59 Dose: Not Given Insulin Glargine (Lantus) 35 unit SC HS JULIANE Last Admin: 10/17/16 23:08 Dose: Not Given Insulin Human Regular (Novolin R) 0 unit SC ACHS JULIANE PRN Reason: Protocol Last Admin: 10/17/16 21:34 Dose: Not Given Metoclopramide HCl (Reglan) 10 mg IVP ACHS [facility] Last Admin: 10/18/16 07:59 Dose: 10 mg Morphine Sulfate (Morphine) 2 mg IVP Q6 PRN PRN Reason: for abdominal pain Last Admin: 10/18/16 07:59 Dose: 2 mg Pneumococcal Polyvalent Vaccine (Pneumovax 23 Vaccine) 0.5 ml IM .ONCE ONE Stop: 10/18/16 10:01 Polyethylene Glycol (Miralax) 17 gm PO DAILY JULIANE Last Admin: 10/17/16 11:38 Dose: 17 gm - Labs Labs: 10/17/16 06:03 10/17/16 06:03 PT 12.5 SECONDS (9.7-12.2) H 10/15/16 19:02 INR 1.1 10/15/16 19:02 APTT 39 SECONDS (21-34) H 10/15/16 19:02 - Constitutional Appears: Non-toxic - Eye Exam Eye Exam: EOMI, PERRL - ENT Exam ENT Exam: Mucous Membranes Moist - Respiratory Exam Respiratory Exam: Clear to Ausculation Bilateral. absent: Rales, Rhonchi, Wheezes - Cardiovascular Exam Cardiovascular Exam: RRR, +S1, +S2 - GI/Abdominal Exam GI & Abdominal Exam: Soft, Tenderness (epigastric), Normal Bowel Sounds. absent : Distended, Firm, Guarding, Rigid, Organomegaly - Extremities Exam Extremities Exam: Normal Inspection. absent: Pedal Edema - Neurological Exam Neurological Exam: Alert, Awake, Oriented x3 - Psychiatric Exam Psychiatric exam: Normal Affect, Normal Mood - Skin Skin Exam: Dry, Warm Assessment and Plan - Assessment and Plan (Free Text) Assessment: Patient is a 31yo male with PMHx significant for DM, severe gastroparesis, pancreatitis H pylori gastritis (untreated) who presented to the ED with complaint of abdominal pain. -Abdominal pain, possibly 2/2 resolving DKA episode vs severe gastroparesis -Uncontrolled DM -H pylori gastritis Plan: -Encourage 6 small meals, low fat/soft -Patient would benefit from better glycemic control -Check Hgb A1c -Consider endocrinology consultation -Miralax 17g PO QD for constipation -Continue Reglan 10mg IV QACHS -Check H pylori stool Ag, unknown status - dx in 2013 on EGD; still uncollected -Continue to monitor clinical course <Dino Smart - Last Filed: 10/18/16 08:53> Objective - Vital Signs/Intake and Output Vital Signs (last 24 hours): Temp Pulse Resp BP Pulse Ox 98.3 F 68 20 156/87 H 100 10/18/16 08:12 10/18/16 08:12 10/18/16 08:12 10/18/16 08:12 10/18/16 08:12 Intake and Output: 10/18/16 10/18/16 06:59 18:59 Intake Total 430 Balance 430 - Medications Medications: Current Medications Sodium Chloride (Sodium Chloride 0.45%) 1,000 mls @ 100 mls/hr IV .Q10H JULIANE Last Admin: 10/17/16 16:59 Dose: Not Given Insulin Glargine (Lantus) 35 unit SC HS [facility] Last Admin: 10/17/16 23:08 Dose: Not Given Insulin Human Regular (Novolin R) 0 unit SC ACHS JULIANE PRN Reason: Protocol Last Admin: 10/18/16 08:39 Dose: 4 unit Metoclopramide HCl (Reglan) 10 mg IVP ACHS [facility] Last Admin: 10/18/16 07:59 Dose: 10 mg Morphine Sulfate (Morphine) 2 mg IVP Q6 PRN PRN Reason: for abdominal pain Last Admin: 10/18/16 07:59 Dose: 2 mg Pneumococcal Polyvalent Vaccine (Pneumovax 23 Vaccine) 0.5 ml IM .ONCE ONE Stop: 10/18/16 10:01 Polyethylene Glycol (Miralax) 17 gm PO DAILY [facility] Last Admin: 10/17/16 11:38 Dose: 17 gm - Labs Labs: 10/17/16 06:03 10/17/16 06:03 PT 12.5 SECONDS (9.7-12.2) H 10/15/16 19:02 INR 1.1 10/15/16 19:02 APTT 39 SECONDS (21-34) H 10/15/16 19:02 Attending/Attestation - Attestation I have personally seen and examined this patient.: Yes I have fully participated in the care of the patient.: Yes I have reviewed all pertinent clinical information, including history, physical exam and plan: Yes Notes (Text): 10/18/16 08:49 I have seen and examined patient with GI fellow. He is seen resting in bed, complains of ongoing epigastric abdominal pain with two episodes of non-bloody emesis this morning. He denies diarrhea, fever/chills. Review of vitals from today shows elevated BP. DM, uncontrolled Abdominal pain, vomiting - gastroparesis - Continue with anti-emetic and pro-kinetic therapy for symptomatic relief - Obtain HBA1C - Awaiting stool HP antigen testing, patient with prior diagnosis without apparent therapy - Suggest endocrinology consultation given rising anion gap with persistently elevated blood glucose - Pain control - Small, frequent diabetic meals as tolerated - No clinical evidence to support infectious cause of ongoing patient symptoms, will continue to monitor patient clinical course
[2016-10-18] MEDS: (Novolin R) Insulin Human Regular 100 units/ml vial SC SCH ×2 (08:39→12:25)
[2016-10-18] MEDS ORDERED: Pneumococcal 23-Valent Vaccine IM ONE (10:00)
[2016-10-18] MEDS: POLYETHYLENE GLYCOL 3350 17 GM/Dose PACKET PO SCH (10:39)
[2016-10-18] MEDS: Sodium Chloride 0.45% 1,000 ML IV SCH ×2 (10:39→12:25)
--- NOTE | 2016-10-18 13:05 | CP.PCM.PN ---
Subjective - Date & Time of Evaluation Date of Evaluation: 10/18/16 Time of Evaluation: 11:30 - Subjective Subjective: Pt seen and examine dtoday states feels better, vomiting resolved, hasnt vomit since yesterday, tolerating diet without issues Objective - Vital Signs/Intake and Output Vital Signs (last 24 hours): Temp Pulse Resp BP Pulse Ox 98.3 F 68 20 156/87 H 100 10/18/16 08:12 10/18/16 08:12 10/18/16 08:12 10/18/16 08:12 10/18/16 08:12 Intake and Output: 10/18/16 10/18/16 06:59 18:59 Intake Total 430 Balance 430 - Medications Medications: Current Medications Sodium Chloride (Sodium Chloride 0.45%) 1,000 mls @ 100 mls/hr IV .Q10H JULIANE Last Admin: 10/18/16 12:25 Dose: Not Given Insulin Glargine (Lantus) 35 unit SC HS JULIANE Last Admin: 10/17/16 23:08 Dose: Not Given Insulin Human Regular (Novolin R) 0 unit SC ACHS JULIANE PRN Reason: Protocol Last Admin: 10/18/16 12:25 Dose: 2 unit Metoclopramide HCl (Reglan) 10 mg IVP ACHS [facility] Last Admin: 10/18/16 12:24 Dose: 10 mg Morphine Sulfate (Morphine) 2 mg IVP Q6 PRN PRN Reason: for abdominal pain Last Admin: 10/18/16 07:59 Dose: 2 mg Polyethylene Glycol (Miralax) 17 gm PO DAILY JUL[facility]E Last Admin: 10/18/16 10:39 Dose: 17 gm - Labs Labs: 10/17/16 06:03 10/17/16 06:03 PT 12.5 SECONDS (9.7-12.2) H 10/15/16 19:02 INR 1.1 10/15/16 19:02 APTT 39 SECONDS (21-34) H 10/15/16 19:02 Assessment and Plan - Assessment and Plan (Free Text) Assessment: A/P 31 yr old male admitted for abdominal pain, / hyperglycemia pt tolerating diet without any problems seen by GI , recommends small meals D/w Dr. Valentine, cleared for discharge home otday and f/u with PMD in 3- 5 days Discharge plan discussed with patient who understands and agrees with plan
--- NOTE | 2016-10-18 13:25 | CP.PCM.DIS ---
Provider - Provider Date of Admission: 10/15/16 23:39 Attending physician: Marshall Valentine MD Time Spent in preparation of Discharge (in minutes): 30 Hospital Course - Lab Results Lab Results: Micro Results 10/16/16 10:25 Blood Blood Culture - Preliminary NO GROWTH AFTER 48 HOURS 10/16/16 10:50 Blood Blood Culture - Preliminary NO GROWTH AFTER 48 HOURS 10/15/16 Unknown Urine Urine Culture - Final No Growth (<1,000 CFU/ML) Most Recent Lab Values WBC 10.3 K/uL (4.8-10.8) 10/17/16 06:03 RBC 4.91 Mil/uL (4.40-5.90) 10/17/16 06:03 Hgb 14.4 g/dL (12.0-18.0) 10/17/16 06:03 Hct 44.6 % (35.0-51.0) 10/17/16 06:03 MCV 91.0 fL (80.0-94.0) 10/17/16 06:03 MCH 29.4 pg (27.0-31.0) 10/17/16 06:03 MCHC 32.3 g/dL (33.0-37.0) L 10/17/16 06:03 RDW 14.6 % (11.5-14.5) H 10/17/16 06:03 Plt Count 276 K/uL (130-400) 10/17/16 06:03 MPV 10.1 fL (7.2-11.7) 10/17/16 06:03 Neut % (Auto) 84.7 % (50.0-75.0) H 10/17/16 06:03 Lymph % (Auto) 11.4 % (20.0-40.0) L 10/17/16 06:03 Evans % (Auto) 3.6 % (0.0-10.0) 10/17/16 06:03 Eos % (Auto) 0.0 % (0.0-4.0) 10/17/16 06:03 Baso % (Auto) 0.3 % (0.0-2.0) 10/17/16 06:03 Neut # 8.7 K/uL (1.8-7.0) H 10/17/16 06:03 Lymph # 1.2 K/uL (1.0-4.3) 10/17/16 06:03 Evans # 0.4 K/uL (0.0-0.8) 10/17/16 06:03 Eos # 0.0 K/uL (0.0-0.7) 10/17/16 06:03 Baso # 0.0 K/uL (0.0-0.2) 10/17/16 06:03 Neutrophils % (Manual) 91 % (50-75) H 10/15/16 19:02 Lymphocytes % (Manual) 7 % (20-40) L 10/15/16 19:02 Monocytes % (Manual) 2 % (0-10) 10/15/16 19:02 Platelet Estimate Normal (NORMAL) 10/15/16 19:02 PT 12.5 SECONDS (9.7-12.2) H 10/15/16 19:02 INR 1.1 10/15/16 19:02 APTT 39 SECONDS (21-34) H 10/15/16 19:02 Puncture Site Lr 10/15/16 20:28 pCO2 31 mm/Hg (35-45) L 10/15/16 20:28 pO2 101 mm/Hg (80-100) H 10/15/16 20:28 HCO3 20.1 mmol/L (21-28) L 10/15/16 20:28 ABG pH 7.37 (7.35-7.45) 10/15/16 20:28 ABG Total CO2 18.9 mmol/L (22-28) L 10/15/16 20:28 ABG O2 Saturation 98.7 % (95-98) H 10/15/16 20:28 ABG Base Excess -6.2 mmol/L (-2.0-3.0) L 10/15/16 20:28 Nixon Test Po 10/15/16 20:28 ABG Potassium 3.3 mmol/L (3.6-5.2) L 10/15/16 20:28 A-a O2 Difference 10.0 mm/Hg 10/15/16 20:28 Respiratory Index 0.1 10/15/16 20:28 Sodium 142.0 mmol/l (132-148) 10/15/16 20:28 Chloride 109.0 mmol/L (98-107) H 10/15/16 20:28 Glucose 368 mg/dl (75-110) H 10/15/16 20:28 Lactate 2.1 mmol/L (0.7-2.1) 10/15/16 20:28 FiO2 21.0 % 10/15/16 20:28 Sodium 136 mmol/L (132-148) 10/17/16 06:03 Potassium 4.6 mmol/L (3.6-5.2) 10/17/16 06:03 Chloride 93 mmol/L (98-107) L 10/17/16 06:03 Carbon Dioxide 14 mmol/L (22-30) L 10/17/16 06:03 Anion Gap 34 (10-20) H 10/17/16 06:03 BUN 21 mg/dL (9-20) H 10/17/16 06:03 Creatinine 0.8 MG/DL (0.8-1.5) 10/17/16 06:03 Est GFR ( Amer) > 60 10/17/16 06:03 Est GFR (Non-Af Amer) > 60 10/17/16 06:03 POC Glucose (mg/dL) 174 mg/dL (65-110) H 10/18/16 11:13 Random Glucose 362 mg/dL (75-110) H 10/17/16 06:03 Hemoglobin A1c 9.3 % (4.2-6.5) H 10/18/16 11:12 Calcium 8.2 mg/dl (8.6-10.4) L 10/17/16 06:03 Phosphorus 4.6 mg/dL (2.5-4.5) H 10/15/16 19:02 Magnesium 2.2 mg/dL (1.6-2.3) 10/15/16 19:02 Total Bilirubin 1.8 mg/dL (0.2-1.3) H 10/17/16 06:03 Direct Bilirubin 0.5 mg/dL (0.0-0.4) H 10/17/16 06:03 AST 23 U/L (17-59) 10/17/16 06:03 ALT 25 U/L (21-72) 10/17/16 06:03 Alkaline Phosphatase 102 U/L (38-126) 10/17/16 06:03 Total Protein 7.2 g/dL (6.3-8.3) 10/17/16 06:03 Albumin 4.2 g/dL (3.5-5.0) 10/17/16 06:03 Globulin 3.0 gm/dL (2.2-3.9) 10/17/16 06:03 Albumin/Globulin Ratio 1.4 (1.0-2.1) 10/17/16 06:03 Lipase 15 U/L (23-300) L 10/15/16 19:02 Arterial Blood Potassium 3.3 mmol/L (3.6-5.2) L 10/15/16 20:28 Urine Color Straw (YELLOW) 10/16/16 09:49 Urine Clarity Clear (Clear) 10/16/16 09:49 Urine pH 5.0 (5.0-8.0) 10/16/16 09:49 Ur Specific [place] 1.028 (1.003-1.030) 10/16/16 09:49 Urine Protein Negative mg/dL (NEGATIVE) 10/16/16 09:49 Urine Glucose (UA) 3+ mg/dL (Normal) H 10/16/16 09:49 Urine Ketones 2+ mg/dL (NEGATIVE) H 10/16/16 09:49 Urine Blood Negative (NEGATIVE) 10/16/16 09:49 Urine Nitrate Negative (NEGATIVE) 10/16/16 09:49 Urine Bilirubin Negative (NEGATIVE) 10/16/16 09:49 Urine Urobilinogen Normal mg/dL (0.2-1.0) 10/16/16 09:49 Ur Leukocyte Esterase Neg Leslie/uL (Negative) 10/16/16 09:49 Urine WBC (Auto) < 1 /hpf (0-5) 10/16/16 09:49 Urine RBC (Auto) < 1 /hpf (0-3) 10/16/16 09:49 Ur Squamous Epith Cells < 1 /hpf (0-5) 10/16/16 09:49 Urine Opiates Screen Positive (NEGATIVE) 10/16/16 09:49 Urine Methadone Screen Negative (NEGATIVE) 10/16/16 09:49 Ur Barbiturates Screen Negative (NEGATIVE) 10/16/16 09:49 Ur Phencyclidine Scrn Negative (NEGATIVE) 10/16/16 09:49 Ur Amphetamines Screen Negative (NEGATIVE) 10/16/16 09:49 U Benzodiazepines Scrn Negative (NEGATIVE) 10/16/16 09:49 U Oth Cocaine Metabols Negative (NEGATIVE) 10/16/16 09:49 U Cannabinoids Screen Negative (NEGATIVE) 10/16/16 09:49 Alcohol, Quantitative < 10 mg/dl (0-10) 10/15/16 19:02 Serum Ketones Large (NEGATIVE) 10/15/16 19:02 - Hospital Course Hospital Course: ADMITTED WITH UNCONTROLLED SUGAR WITH KETONES AND HIGH AG A/W ABD. PAIN NO N/V PAST HIST. IDDM , PACREATIC CYST/GASTROPARESIS PT. SUGAR IMPROVED WITH IV FLUID AND SC INSULIN GI WAS CONSULTED ABD PAIN WAS SEC TO PREVIOUSLY DIAGNOSED GASTROPARESIS IT IMPROVED ON IV REGLAN PT STABLE D/C HOME F/U WITH [facility] ON HOME MEDS AND REGLAN DIET INS. GIVEN Discharge Plan - Discharge Medications Prescriptions: Metoclopramide [Reglan] 10 mg PO ACTID #30 tab - Follow Up Plan Condition: FAIR Disposition: HOME/ ROUTINE Additional Instructions: Please f/u with Dr. Boland office in 3-5 days f/u with Dr. Dr. Smart office in 1-2 weeks- call for appointment Resume home medications Continue medications as per Med. Rec
== END 2016-10-18 15:35 | disposition home or self-care (01) | DRG 566 ==
LOC: C.ER 18:03 → C.9E 23:39 → C.3T 10-16 00:26
PROVIDERS: ADMIT Internal Medicine Cardiovascular Disease; ATTEND Internal Medicine Cardiovascular Disease
DX: E10.10 Type 1 diabetes mellitus with ketoacidosis without coma (principal); K85.90 Acute pancreatitis without necrosis or infection, unspecified; K31.84 Gastroparesis; E10.43 Type 1 diabetes mellitus with diabetic autonomic (poly)neuropathy; F17.210 Nicotine dependence, cigarettes, uncomplicated; K29.70 Gastritis, unspecified, without bleeding; B96.81 Helicobacter pylori [H. pylori] as the cause of diseases classified elsewhere

== ENCOUNTER 2016-10-25 17:54 | Emergency (ER) | payer MEDICAID ==
[2016-10-25 17:54] VITALS: BMI 21.4
[2016-10-25 18:17] VITALS: TEMP 97.8
[2016-10-25] MEDS ORDERED: Sodium Chloride 0.9% 1,000 ML ONE (19:29)
[2016-10-25] MEDS ORDERED: Sodium Chloride 0.9% 1,000 ML IV ONE ×2 (19:32→19:38)
[2016-10-25 19:40] LABS: BASO # 0.1 K/uL (0.0-0.2); EOS % 0.1 % (0.0-4.0); HEMATOCRIT 45.4 % (35.0-51.0); LYMPH # 0.8 K/uL (1.0-4.3); LYMPH % 13.7 % (20.0-40.0); MEAN CELL VOLUME 90.2 fL (80.0-94.0); MEAN CORPUSCULAR HEMOGLOBIN 29.1 pg (27.0-31.0); MEAN CORPUSCULAR HGB CONC 32.3 g/dL (33.0-37.0); MEAN PLATELET VOLUME 10.4 fL (7.2-11.7); MONO # 0.2 K/uL (0.0-0.8); MONO % 2.9 % (0.0-10.0); RED CELL DISTRIBUTION WIDTH 14.4 % (11.5-14.5); WHITE BLOOD COUNT 5.9 K/uL (4.8-10.8)
[2016-10-25 19:46] LABS: CHLORIDE 100 mmol/L (98-107)
[2016-10-25 19:47] LABS: POTASSIUM 5.1 mmol/L (3.6-5.2); SODIUM 141 mmol/L (132-148)
[2016-10-25 19:49] LABS: ALB/GLOB RATIO 1.3 (1.0-2.1); ALKALINE PHOSPHATASE 93 U/L (38-126); AMYLASE 115 U/L (30-110); AST/SGOT 36 U/L (17-59); BILIRUBIN,TOTAL 0.8 mg/dL (0.2-1.3); BLOOD UREA NITROGEN 17 mg/dL (9-20); CARBON DIOXIDE 25 mmol/L (22-30); GFR AFRICAN-AMERICAN > 60
[2016-10-25] MEDS ORDERED: Morphine 4 MG/ML VIAL ONE (19:49)
[2016-10-25 19:50] LABS: ALT/SGPT 16 U/L (21-72); CALCIUM 9.3 mg/dl (8.6-10.4); GLUCOSE,RANDOM 235 mg/dL (75-110)
--- NOTE | 2016-10-25 19:59 | C.PDOC ---
History Of Present Illness Patient is a 31 year old male who presents to the ER with a complaint of a cramping abdominal pain, and vomiting that began today. Patient has a PMHx of IDDM and gastroparesis. Patient has been seen in the past for hypoglycemia and gastroparesis. Patient states he has had 1 episode of diarrhea followed by multiple episodes of diarrhea. Denies fever, chills, or sick contact. Time Seen by Provider: 10/25/16 18:57 Chief Complaint (Nursing): Abdominal Pain History Per: Patient History/Exam Limitations: no limitations Onset/Duration Of Symptoms: Hrs Current Symptoms Are (Timing): Still Present Location Of Pain/Discomfort: Diffuse Quality Of Discomfort: Cramping Associated Symptoms: Vomiting, Diarrhea. denies: Fever, Chills Past Medical History Reviewed: Historical Data, Nursing Documentation, Vital Signs Vital Signs: Last Vital Signs Temp 97.8 F 10/25/16 21:19 Pulse 95 H 10/25/16 21:19 Resp 20 10/25/16 21:19 BP 134/78 10/25/16 21:19 Pulse Ox 98 10/25/16 21:19 - Medical History PMH: Diabetes, Gastritis, Pancreatitis Other PMH: Gastroparesis Surgical History: Endoscopy - [facility] Procedures ESOPHAGOGASTRODUODENOSCOPY [EGD] W/CLOSED BIOPSY (07/30/13) Family History: States: Unknown Family Hx, Diabetes - Social History Hx Tobacco Use: Yes Hx Alcohol Use: No Hx Substance Use: No - Immunization History Hx Influenza Vaccination: Yes (2014) Review Of Systems Constitutional: Negative for: Fever, Chills Gastrointestinal: Positive for: Vomiting, Abdominal Pain (Cramping), Diarrhea Physical Exam - Physical Exam Appears: Well, Non-toxic, In Acute Distress Skin: Normal Color, Warm, Dry Head: Atraumatic, Normacephalic Oral Mucosa: Moist Chest: Symmetrical, No Tenderness Cardiovascular: Rhythm Regular, No Murmur Respiratory: Normal Breath Sounds, No Rales, No Rhonchi, No Wheezing Gastrointestinal/Abdominal: Soft, Tenderness (Diffuse), No Guarding, No Rebound Neurological/Psych: Oriented x3, Normal Speech, Normal Cognition ED Course And Treatment - Laboratory Results Result Diagrams: 10/25/16 19:34 10/25/16 19:34 O2 Sat by Pulse Oximetry: 100 (Room air) Pulse Ox Interpretation: Normal Medical Decision Making Medical Decision Making: Plan: * Blood work * Urinalysis * Morphine * Reglan IV * IV fluids * Zofran IVP Pt markedly improved post meds Abd continued soft Will dc home with reglan (pt was not taking it) Disposition Counseled Patient/Family Regarding: Diagnosis, Need For Followup - Disposition Disposition: HOME/ ROUTINE Disposition Time: 21:48 Condition: GOOD Prescriptions: Famotidine [Pepcid] 1 tab PO BID #30 tab Metoclopramide HCl [Reglan] 1 tab PO TID #60 tablet Instructions: Diabetic Gastroparesis (GEN) - Clinical Impression Clinical Impression: Diabetic gastroparesis, Abdominal pain, Vomiting - Scribe Statement The provider has reviewed the documentation as recorded by the Scribshabbir Colon All medical record entries made by the Shannonibshabbir were at my direction and personally dictated by me. I have reviewed the chart and agree that the record accurately reflects my personal performance of the history, physical exam, medical decision making, and the department course for this patient. I have also personally directed, reviewed, and agree with the discharge instructions and disposition.
[2016-10-25 21:20] VITALS: BP 134/78; PULSE 95; RESP 20
[2016-10-25 21:51] VITALS: O2SAT 100
[2016-10-25 22:00] LABS: RBC URINE 1 /hpf (0-3); URINE BACTERIA RARE (<OCC); URINE BILIRUBIN NEGATIVE (NEGATIVE); URINE BLOOD NEGATIVE (NEGATIVE); URINE COLOR Yellow (YELLOW); URINE GLUCOSE (UA) 3+ mg/dL (Normal); URINE KETONE 1+ mg/dL (NEGATIVE); URINE LEUKOCYTE ESTERASE NEG Leu/uL (Negative); URINE PROTEIN NEGATIVE (NEGATIVE); URINE UROBILINOGEN NORMAL mg/dL (0.2-1.0); WBC URINE 2 /hpf (0-5)
== END 2016-10-25 22:10 | disposition home or self-care (01) ==
LOC: C.ER 17:54
DX: E11.43 Type 2 diabetes mellitus with diabetic autonomic (poly)neuropathy (principal); K31.84 Gastroparesis; R10.9 Unspecified abdominal pain; R11.10 Vomiting, unspecified
CPT/HCPCS: 80053; 81001; 82009; 82150; 83690; 85025; 96361; 96374; 96375; 99284; J2270; J2405; J2765; J7040

== ENCOUNTER 2016-12-09 10:23 | Emergency (ER) | payer MEDICAID ==
[2016-12-09 10:23] VITALS: BMI 21.4
[2016-12-09] MEDS ORDERED: Sodium Chloride 0.9% 1,000 ML IV ONE ×2 (10:38→12:17)
[2016-12-09] MEDS ORDERED: Sodium Chloride 0.9% 1,000 ML ONE ×2 (10:43→12:31)
[2016-12-09] MEDS ORDERED: Morphine 4 MG/ML VIAL ONE ×2 (10:48→11:41)
[2016-12-09 10:57] LABS: VENOUS BLOOD GAS BASE EXCESS 6.9 mmol/L (0.0-2.0); VENOUS BLOOD GAS PCO2 49 mmHg (40-60); VENOUS BLOOD PH 7.43 (7.32-7.43)
--- NOTE | 2016-12-09 11:09 | C.PDOC ---
History Of Present Illness 31-year-old male, PMHx includes Diabetes and Diabetic gastroparesis, presents to the emergency department with complaints of nausea and non-bloody/non- bilious vomiting since 07:00 this morning. Patient states that this is similar to prior episodes. Patient is compliant with his Insulin. No diarrhea, fevers, chest pain or shortness of breath. No other complaints at this time. Time Seen by Provider: 12/09/16 10:34 Chief Complaint (Nursing): GI Problem History Per: Patient History/Exam Limitations: no limitations Onset/Duration Of Symptoms: Hrs Current Symptoms Are (Timing): Still Present Severity: Moderate Past Medical History Reviewed: Historical Data, Nursing Documentation, Vital Signs Vital Signs: Last Vital Signs Temp 97.7 F 12/09/16 10:26 Pulse 98 H 12/09/16 12:55 Resp 16 12/09/16 12:55 BP 130/80 12/09/16 12:55 Pulse Ox 97 12/09/16 12:55 - Medical History PMH: Diabetes, Gastritis, Pancreatitis Denies: Chronic Kidney Disease Surgical History: Endoscopy - [facility] Procedures ESOPHAGOGASTRODUODENOSCOPY [EGD] W/CLOSED BIOPSY (07/30/13) Family History: States: No Known Family Hx, Diabetes - Social History Hx Tobacco Use: Yes Hx Alcohol Use: No Hx Substance Use: No - Immunization History Hx Tetanus Toxoid Vaccination: No Hx Influenza Vaccination: No Hx Pneumococcal Vaccination: No Review Of Systems Except As Marked, All Systems Reviewed And Found Negative. Constitutional: Negative for: Fever, Chills Cardiovascular: Negative for: Chest Pain, Palpitations Respiratory: Negative for: Shortness of Breath Gastrointestinal: Positive for: Nausea, Vomiting, Abdominal Pain. Negative for : Hematochezia, Hematemesis Genitourinary: Negative for: Dysuria, Frequency Musculoskeletal: Negative for: Back Pain Skin: Negative for: Rash Neurological: Negative for: Weakness, Numbness, Headache, Dizziness Physical Exam - Physical Exam Appears: Non-toxic, Other (Moderate painful distress. Moaning. Actively vomiting.) Skin: Warm, Dry, No Rash Head: Atraumatic, Normacephalic Eye(s): bilateral: Normal Inspection Nose: Normal Oral Mucosa: Moist Lips: Normal Appearing Neck: Normal ROM Cardiovascular: Rhythm Regular, No Murmur Respiratory: No Accessory Muscle Use Gastrointestinal/Abdominal: Soft, Tenderness (epigastric. (-)mcburneys (-) murphys), No Guarding, No Rebound Extremity: Normal ROM Neurological/Psych: Oriented x3 ED Course And Treatment - Laboratory Results Result Diagrams: 12/09/16 11:05 12/09/16 10:38 O2 Sat by Pulse Oximetry: 98 Progress Note: Bloodwork and Urinalysis ordered and reviewed. Patient treated with Morphine, Zofran, Protonix and IVFs. Disposition Counseled Patient/Family Regarding: Studies Performed, Diagnosis, Need For Followup, Rx Given - Disposition Referrals: Jersey Rawls MD [Medical Doctor] - Pat Aguila [Staff Provider] - Disposition: HOME/ ROUTINE Disposition Time: 14:45 Condition: STABLE Additional Instructions: SEGUIMIENTO CON EL GASTROENTERLOGO SEGN HORARIO USE LOS MEDICAMENTOS QUE BELLA NECESARIOS DEVUELVA A LA MARIUSZ DE EMERGENCIA SI LOS SNTOMAS EMPEORARAN Prescriptions: Famotidine [Pepcid] 20 mg PO BID PRN #20 tab PRN Reason: abdominal Hydrocodone/Acetaminophen [Hydrocodon-Acetaminophen 5-325] 1 each PO Q6 PRN #12 tablet PRN Reason: Pain, Moderate (4-7) Instructions: Diabetic Gastroparesis (DC), Acute Nausea and Vomiting (ED) Print Language: POLISH - Clinical Impression Clinical Impression: Diabetic gastroparesis, Nausea, Vomiting, Diabetes mellitus - Scribe Statement The provider has reviewed the documentation as recorded by the Scribshabbir Doe All medical record entries made by the Scribe were at my direction and personally dictated by me. I have reviewed the chart and agree that the record accurately reflects my personal performance of the history, physical exam, medical decision making, and the department course for this patient. I have also personally directed, reviewed, and agree with the discharge instructions and disposition.
[2016-12-09 11:12] LABS: BASO # 0.1 K/uL (0.0-0.2); BASO % 1.2 % (0.0-2.0); EOS % 0.4 % (0.0-4.0); HEMATOCRIT 43.2 % (35.0-51.0); LYMPH # 2.2 K/uL (1.0-4.3); LYMPH % 23.9 % (20.0-40.0); MEAN CELL VOLUME 89.9 fL (80.0-94.0); MEAN CORPUSCULAR HEMOGLOBIN 30.1 pg (27.0-31.0); MEAN CORPUSCULAR HGB CONC 33.5 g/dL (33.0-37.0); MEAN PLATELET VOLUME 9.9 fL (7.2-11.7); MONO # 0.6 K/uL (0.0-0.8); MONO % 6.6 % (0.0-10.0); NRBC % 0.1 % (0.0-2.0); RED CELL DISTRIBUTION WIDTH 14.7 % (11.5-14.5); WHITE BLOOD COUNT 9.4 K/uL (4.8-10.8)
[2016-12-09 11:26] LABS: CHLORIDE 95 mmol/L (98-107); POTASSIUM 4.1 mmol/L (3.6-5.2); SODIUM 139 mmol/L (132-148)
[2016-12-09 11:28] LABS: AST/SGOT 25 U/L (17-59); CARBON DIOXIDE 32 mmol/L (22-30); GFR AFRICAN-AMERICAN > 60
[2016-12-09 11:29] LABS: ALB/GLOB RATIO 1.3 (1.0-2.1); ALKALINE PHOSPHATASE 101 U/L (38-126); ALT/SGPT 18 U/L (21-72); BLOOD UREA NITROGEN 14 mg/dL (9-20); CALCIUM 9.1 mg/dl (8.6-10.4); GLUCOSE,RANDOM 255 mg/dL (75-110); TOTAL PROTEIN 7.8 g/dL (6.3-8.3)
[2016-12-09 11:45] VITALS: RESP 16
[2016-12-09] MEDS ORDERED: (Novolin R) Insulin Human Regular 100 units/ml vial IV ONE (12:17)
[2016-12-09] MEDS ORDERED: (Novolin R) Insulin Human Regular 100 units/ml vial ONE (12:31)
[2016-12-09 13:03] LABS: RBC URINE < 1 /hpf (0-3); URINE BILIRUBIN NEGATIVE (NEGATIVE); URINE BLOOD NEGATIVE (NEGATIVE); URINE COLOR Straw (YELLOW); URINE GLUCOSE (UA) 3+ mg/dL (Normal); URINE KETONE 1+ mg/dL (NEGATIVE); URINE LEUKOCYTE ESTERASE NEG Leu/uL (Negative); URINE PROTEIN NEGATIVE (NEGATIVE); URINE UROBILINOGEN NORMAL mg/dL (0.2-1.0); WBC URINE < 1 /hpf (0-5)
[2016-12-09] MEDS ORDERED: HYDROmorphone 1 mg/ml ISec IVP STA (13:14)
[2016-12-09] MEDS ORDERED: HYDROmorphone 1 mg/ml ISec ONE (13:34)
[2016-12-09 14:40] VITALS: BP 126/64; PULSE 64; TEMP 96.7
[2016-12-09 14:42] VITALS: O2SAT 98
== END 2016-12-09 15:30 | disposition home or self-care (01) ==
LOC: C.ER 10:23
DX: E11.43 Type 2 diabetes mellitus with diabetic autonomic (poly)neuropathy (principal); K31.84 Gastroparesis; R11.2 Nausea with vomiting, unspecified
CPT/HCPCS: 80053; 81001; 82009; 82803; 82948; 83930; 85025; 96361; 96374; 96375; 96376; 99285; C9113; J1170; J2270; J2405; J7040

== ENCOUNTER 2016-12-13 10:54 | Observation (INO) | payer MEDICAID ==
[2016-12-13 11:03] VITALS: BMI 21.7
[2016-12-13] MEDS ORDERED: Sodium Chloride 0.9% 1,000 ML IV STA (12:15)
[2016-12-13] MEDS ORDERED: Morphine 4 MG/ML VIAL ONE (12:25)
[2016-12-13 12:26] LABS: BASO % 0.5 % (0.0-2.0); EOS % 0.2 % (0.0-4.0); HEMATOCRIT 40.5 % (35.0-51.0); LYMPH # 1.4 K/uL (1.0-4.3); LYMPH % 22.2 % (20.0-40.0); MEAN CELL VOLUME 88.6 fL (80.0-94.0); MEAN CORPUSCULAR HEMOGLOBIN 29.9 pg (27.0-31.0); MEAN CORPUSCULAR HGB CONC 33.7 g/dL (33.0-37.0); MEAN PLATELET VOLUME 9.2 fL (7.2-11.7); MONO # 0.4 K/uL (0.0-0.8); MONO % 6.4 % (0.0-10.0); RED CELL DISTRIBUTION WIDTH 14.4 % (11.5-14.5); WHITE BLOOD COUNT 6.1 K/uL (4.8-10.8)
[2016-12-13] MEDS ORDERED: Sodium Chloride 0.9% 1,000 ML ONE (12:26)
[2016-12-13 12:48] LABS: CHLORIDE 97 mmol/L (98-107)
[2016-12-13 12:49] LABS: POTASSIUM 3.3 mmol/L (3.6-5.2); SODIUM 138 mmol/L (132-148)
[2016-12-13 12:51] LABS: BILIRUBIN,TOTAL 0.6 mg/dL (0.2-1.3); CARBON DIOXIDE 33 mmol/L (22-30); GFR AFRICAN-AMERICAN > 60
[2016-12-13 12:52] LABS: ALB/GLOB RATIO 1.3 (1.0-2.1); ALKALINE PHOSPHATASE 84 U/L (38-126); ALT/SGPT 16 U/L (21-72); AST/SGOT 21 U/L (17-59); BLOOD UREA NITROGEN 11 mg/dL (9-20); CALCIUM 8.8 mg/dl (8.6-10.4); GLUCOSE,RANDOM 104 mg/dL (75-110); TOTAL PROTEIN 7.3 g/dL (6.3-8.3)
[2016-12-13] MEDS ORDERED: Potassium Chloride 20 mEq ER Tab PO STA (13:31)
[2016-12-13] MEDS ORDERED: Potassium Chloride 20 mEq ER Tab PO ONE (13:41)
[2016-12-13 14:15] LABS: RBC URINE 1 /hpf (0-3); URINE BILIRUBIN NEGATIVE (NEGATIVE); URINE BLOOD NEGATIVE (NEGATIVE); URINE GLUCOSE (UA) NORMAL (Normal); URINE KETONE 1+ mg/dL (NEGATIVE); URINE LEUKOCYTE ESTERASE NEG Leu/uL (Negative); URINE PROTEIN NEGATIVE (NEGATIVE); URINE UROBILINOGEN NORMAL mg/dL (0.2-1.0); WBC URINE 1 /hpf (0-5)
[2016-12-13 14:17] LABS: URINE COLOR LIGHT YELLOW (YELLOW)
--- NOTE | 2016-12-13 15:46 | C.PDOC ---
History Of Present Illness The patient, a 31 y/o male whose PMHx includes gastroparesis and DM, presents to the ED for evaluation of epigastric abdominal pain, nausea, and vomiting which began around 4 days ago. Patient was evaluated in ED around 4 days ago for similar symptoms. Patient was treated in ED and discharged with instructions to follow up wit his PMD. Patient states he has not followed up and reports his symptoms have not improved since prior visit. He denies fever, chills, back pain. Time Seen by Provider: 12/13/16 11:17 Chief Complaint (Nursing): Abdominal Pain History Per: Patient History/Exam Limitations: no limitations Onset/Duration Of Symptoms: Days (4) Current Symptoms Are (Timing): Still Present Location Of Pain/Discomfort: Epigastric Radiation Of Pain To:: None Quality Of Discomfort: "Pain" Associated Symptoms: denies: Fever, Chills, Nausea, Vomiting, Back Pain Exacerbating Factors: None Additional History Per: Patient Past Medical History Reviewed: Historical Data, Nursing Documentation, Vital Signs Vital Signs: Last Vital Signs Temp 98.3 F 12/13/16 18:00 Pulse 66 12/13/16 18:00 Resp 18 12/13/16 18:00 BP 167/83 H 12/13/16 18:00 Pulse Ox 99 12/13/16 18:00 - Medical History PMH: Diabetes, Gastritis, Pancreatitis Surgical History: [facility] [place] [facility] Procedures ESOPHAGOGASTRODUODENOSCOPY [EGD] W/CLOSED BIOPSY (07/30/13) Family History: States: Diabetes - Social History Hx Tobacco Use: Yes Hx Alcohol Use: No Hx Substance Use: No - Immunization History Hx Tetanus Toxoid Vaccination: No Hx Influenza Vaccination: Yes Hx Pneumococcal Vaccination: No Review Of Systems Except As Marked, All Systems Reviewed And Found Negative. Constitutional: Negative for: Fever, Chills Gastrointestinal: Positive for: Nausea, Vomiting, Abdominal Pain Musculoskeletal: Negative for: Back Pain Physical Exam - Physical Exam Appears: Non-toxic, Other (uncomfortable ) Skin: Normal Color, Warm, Dry Head: Atraumatic, Normacephalic Eye(s): bilateral: Normal Inspection Oral Mucosa: Moist Neck: Supple Chest: Symmetrical, No Deformity, No Tenderness Cardiovascular: Rhythm Regular, No Murmur Respiratory: Normal Breath Sounds, No Rales, No Rhonchi, No Wheezing Gastrointestinal/Abdominal: Tenderness (epigastric ), No Guarding, No Rebound Back: Normal Inspection, No Vertebral Tenderness, No Paraspinal Tenderness Extremity: Normal ROM, Capillary Refill (less than 2 seconds ) Neurological/Psych: Oriented x3, Normal Speech, Normal Cognition Gait: Steady ED Course And Treatment - Laboratory Results Result Diagrams: 12/13/16 12:23 12/13/16 12:23 O2 Sat by Pulse Oximetry: 100 (on RA) Pulse Ox Interpretation: Normal Progress Note: labs ordered and reviewed. Pt received Zofran IV, Morphine IV, Reglan IV, IV Fluids, and Potassium Chloride PO. Patient states he has still not found improvement after treatment. Case discussed with Dr. Allison De La Cruz , who agrees to admit patient for observation for intractable abdominal pain and vomiting. Disposition - Disposition Disposition: HOSPITALIZED Disposition Time: 16:13 Condition: SERIOUS - Clinical Impression Clinical Impression: Intractable abdominal pain, Intractable vomiting, Diabetic gastroparesis - PA / CHORAL DIRECTOR / Resident Statement MD/DO has reviewed & agrees with the documentation as recorded. - Scribe Statement The provider has reviewed the documentation as recorded by the Scribe (Mary Grace De La Cruz) All medical record entries made by the Scribe were at my direction and personally dictated by me. I have reviewed the chart and agree that the record accurately reflects my personal performance of the history, physical exam, medical decision making, and the department course for this patient. I have also personally directed, reviewed, and agree with the discharge instructions and disposition. Decision To Admit - Pt Status Changed To: Hospital Disposition Of: Observation - . Bed Request Type: Regular Admitting Physician: Tio De La Cruz Patient Diagnosis: Intractable abdominal pain, Intractable vomiting, Diabetic gastroparesis
[2016-12-13] MEDS ORDERED: Sodium Chloride 0.9% 1,000 ML IV SCH (18:15)
[2016-12-13] MEDS ORDERED: HYDROCODONE PO PRN (18:25)
[2016-12-13] MEDS ORDERED: ACETAMINOPHEN PO PRN (18:25)
--- NOTE | 2016-12-13 18:31 | CP.PCM.HP ---
Past Patient History - Infectious Disease Hx of Infectious Diseases: None - Tetanus Immunizations Tetanus Immunization: Unknown - Past Medical History & Family History Past Medical History?: Yes - Past Social History Smoking Status: Light Smoker < 10 Cigarettes Daily - CARDIAC Hx Cardiac Disorders: No - PULMONARY Hx Respiratory Disorders: No - NEUROLOGICAL Hx Neurological Disorder: No - HEENT Hx HEENT Problems: No - RENAL Hx Chronic Kidney Disease: No - ENDOCRINE/METABOLIC Hx Endocrine Disorders: Yes Hx Diabetes Mellitus Type 1: Yes - HEMATOLOGICAL/ONCOLOGICAL Hx Blood Disorders: No - INTEGUMENTARY Hx Dermatological Problems: No - MUSCULOSKELETAL/RHEUMATOLOGICAL Hx Musculoskeletal Disorders: Yes Hx Falls: Yes - GASTROINTESTINAL Hx Gastritis: Yes Hx Pancreatitis: Yes - GENITOURINARY/GYNECOLOGICAL Hx Genitourinary Disorders: No - PSYCHIATRIC Hx Substance Use: No - SURGICAL HISTORY Hx Surgeries: Yes - ANESTHESIA Hx Anesthesia: Yes Hx Anesthesia Reactions: No Hx Malignant Hyperthermia: No Meds Allergies/Adverse Reactions: Allergies Allergy/AdvReac Type Severity Reaction Status Date / Time No Known Allergies Allergy Verified 12/13/16 11:03 Results - Vital Signs Recent Vital Signs: Last Vital Signs Temp 98.3 F 12/13/16 18:00 Pulse 66 12/13/16 18:00 Resp 18 12/13/16 18:00 BP 167/83 H 12/13/16 18:00 Pulse Ox 99 12/13/16 18:00 - Labs Result Diagrams: 12/13/16 12:23 12/13/16 12:23 Labs: Laboratory Results - last 24 hr 12/13/16 17:50 POC Glucose (mg/dL) 183 H
[2016-12-13 19:02] VITALS: BP 117/73; PULSE 73; RESP 20; TEMP 98.4; O2SAT 98
[2016-12-13] MEDS ORDERED: (Novolog) Insulin Aspart, Recombinant 100 u/ml 10 ml vial SC SCH (22:00)
[2016-12-14] MEDS ORDERED: (Novolog Mix 70/30) Insulin Aspart/Insulin Aspar 100 units/ml SC SCH (10:00)
[2016-12-14] MEDS ORDERED: Enoxaparin 40 mg Syringe SC SCH (10:00)
== END 2016-12-13 21:30 | disposition left against medical advice (07) ==
LOC: C.ER 10:54 → C.9E 16:12 → C.5T 17:42
PROVIDERS: ADMIT Internal Medicine Nephrology; ATTEND Internal Medicine Nephrology
DX: E11.43 Type 2 diabetes mellitus with diabetic autonomic (poly)neuropathy (principal); K31.84 Gastroparesis; Z87.891 Personal history of nicotine dependence
CPT/HCPCS: 80053; 81001; 82948; 83690; 85025; 96360; 96374; C9113; G0378; J2270; J2405; J2765; J7040

== ENCOUNTER 2017-07-14 18:22 | Observation (INO) | payer MEDICAID ==
[2017-07-14 18:22] VITALS: BMI 21.7
[2017-07-14 19:54] LABS: BASO % 0.2 % (0.0-2.0); HEMOGLOBIN 14.8 g/dL (12.0-18.0); LYMPH # 0.8 K/uL (1.0-4.3); LYMPH % 14.6 % (20.0-40.0); MEAN CELL VOLUME 90.3 fL (80.0-94.0); MEAN CORPUSCULAR HEMOGLOBIN 30.5 pg (27.0-31.0); MEAN CORPUSCULAR HGB CONC 33.7 g/dL (33.0-37.0); MEAN PLATELET VOLUME 9.8 fL (7.2-11.7); MONO # 0.2 K/uL (0.0-0.8); MONO % 2.8 % (0.0-10.0); NEUT # 4.6 K/uL (1.8-7.0); NEUT % 82.4 % (50.0-75.0); NRBC % 0.1 % (0.0-2.0); RBC 4.87 Mil/uL (4.40-5.90); RED CELL DISTRIBUTION WIDTH 14.5 % (11.5-14.5); WHITE BLOOD COUNT 5.6 K/uL (4.8-10.8)
[2017-07-14 20:05] LABS: ALB/GLOB RATIO 1.3 (1.0-2.1); ALBUMIN 4.5 g/dL (3.5-5.0); ALT/SGPT 39 U/L (21-72); AST/SGOT 24 U/L (17-59); BLOOD UREA NITROGEN 19 mg/dL (9-20); CALCIUM 8.9 mg/dl (8.6-10.4); GFR AFRICAN-AMERICAN > 60; GFR NON-AFRICAN AMERICAN > 60; LIPASE 25 U/L (23-300)
[2017-07-14] MEDS ORDERED: Sodium Chloride 0.9% 1,000 ML IV ONE (20:05)
--- NOTE | 2017-07-14 20:13 | C.PDOC ---
History Of Present Illness 31 year old male with a past medical history of gastroparesis who presents to the emergency department with a complaint of vomiting and a mid upper abdominal pain described as a diffuse sharp stabbing pain that began today, 07/14/2017. Reports pain is a 4 out of 10. Patient has had numerous of similar visits in the past. Last vomiting episode was in the emergency room. Time Seen by Provider: 07/14/17 20:13 Chief Complaint (Nursing): Abdominal Pain History Per: Patient History/Exam Limitations: no limitations Onset/Duration Of Symptoms: Days Current Symptoms Are (Timing): Still Present Context: Other Severity: Moderate Pain Scale Rating Of: 5 Location Of Pain/Discomfort: Diffuse Radiation Of Pain To:: None Quality Of Discomfort: Sharp, Cramping Associated Symptoms: Nausea, Vomiting. denies: Fever, Chills Exacerbating Factors: Food Alleviating Factors: None Last Bowel Movement: Today Recent travel outside of the [place]: No Additional History Per: Patient Past Medical History Reviewed: Historical Data, Nursing Documentation, Vital Signs Vital Signs: Last Vital Signs Temp 98.7 F 07/14/17 19:17 Pulse 84 07/14/17 21:00 Resp 14 07/14/17 21:00 BP 130/80 07/14/17 21:00 Pulse Ox 96 07/14/17 21:00 - Medical History PMH: Diabetes, Gastritis, Pancreatitis Denies: Chronic Kidney Disease Other PMH: gastroparesis Surgical History: [facility] - [facility] Procedures ESOPHAGOGASTRODUODENOSCOPY [EGD] W/CLOSED BIOPSY (07/30/13) Family History: States: Diabetes - Social History Hx Tobacco Use: Yes Hx Alcohol Use: No Hx Substance Use: No - Immunization History Hx Tetanus Toxoid Vaccination: No Hx Influenza Vaccination: No Hx Pneumococcal Vaccination: No Review Of Systems Except As Marked, All Systems Reviewed And Found Negative. (As per HPI, otherwise negative) Gastrointestinal: Positive for: Nausea, Vomiting, Abdominal Pain (mid upper region) Physical Exam - Physical Exam Appears: Well, Non-toxic Skin: Normal Color, Warm, Dry Head: Atraumatic, Normacephalic Eye(s): bilateral: Normal Inspection Oral Mucosa: Moist Neck: Supple Chest: Symmetrical Cardiovascular: Rhythm Regular, No Murmur Respiratory: Normal Breath Sounds, No Decreased Breath Sounds, No Accessory Muscle Use, No Wheezing Gastrointestinal/Abdominal: No Normal Exam, Soft, Tenderness (Mid epigastric tenderness), No Guarding, No Rebound Back: No CVA Tenderness Extremity: Bilateral: Atraumatic Pulses: Left Dorsalis Pedis: Normal, Right Dorsalis Pedis: Normal Neurological/Psych: Oriented x3 Gait: Steady ED Course And Treatment - Laboratory Results Result Diagrams: 07/14/17 19:50 07/14/17 19:50 O2 Sat by Pulse Oximetry: 100 (RA) Pulse Ox Interpretation: Normal Medical Decision Making Medical Decision Making: Time: 2013 --Lipase --Ketone, Serum --Pepcid 20 mg IVP --Toradol 30 mg IVP --Ativan 1 mg IVP --Zofran 4 mg IVP --Sodium Chloride 1L IV --Urinalysis Disposition Discussed With Dr.: Tio De La Cruz Comment: accepted the pt on his service and took over the care 12:13 AM Doctor Will See Patient In The: Hospital Counseled Patient/Family Regarding: Studies Performed, Diagnosis - Disposition Disposition: HOSPITALIZED Disposition Time: 20:13 Condition: FAIR Forms: [employer] (Danish) - POA Present On Arrival: Poor Glycemic Control - Clinical Impression Clinical Impression: Diabetic gastroparesis, Abdominal pain, Hyperglycemia, Nausea, Intractable vomiting - Scribe Statement Yolanda Nieto All medical record entries made by the Scribe were at my direction and personally dictated by me. I have reviewed the chart and agree that the record accurately reflects my personal performance of the history, physical exam, medical decision making, and the department course for this patient. I have also personally directed, reviewed, and agree with the discharge instructions and disposition. Decision To Admit - Pt Status Changed To: Hospital Disposition Of: Observation - . Bed Request Type: Regular Admitting Physician: Tio De La Cruz Patient Diagnosis: Diabetic gastroparesis, Abdominal pain, Hyperglycemia, Nausea, Intractable vomiting
[2017-07-14 21:08] LABS: URINE BILIRUBIN NEGATIVE (NEGATIVE); URINE BLOOD NEGATIVE (NEGATIVE); URINE CLARITY Clear (Clear); URINE COLOR Yellow (YELLOW); URINE GLUCOSE (UA) 3+ mg/dL (Normal); URINE LEUKOCYTE ESTERASE NEG Leu/uL (Negative); URINE NITRATE NEGATIVE (NEGATIVE); URINE PROTEIN NEGATIVE (NEGATIVE); URINE UROBILINOGEN NORMAL mg/dL (0.2-1.0)
[2017-07-14 21:14] LABS: LIPASE 23 U/L (23-300)
[2017-07-15] MEDS ORDERED: (Novolog) Insulin Aspart, Recombinant 100 u/ml 10 ml vial ONE ×2 (07:58→10:12)
[2017-07-15] MEDS: (Novolog) Insulin Aspart, Recombinant 100 u/ml 10 ml vial SC SCH ×2 (08:01→12:06)
[2017-07-15] MEDS ORDERED: Enoxaparin 150 mg Syringe SC SCH (10:00)
[2017-07-15] MEDS ORDERED: (Novolog) Insulin Aspart, Recombinant 100 u/ml 10 ml vial SC SCH (10:00)
[2017-07-15] MEDS ORDERED: Enoxaparin 40 mg Syringe ONE (10:11)
--- NOTE | 2017-07-15 12:58 | CP.PCM.CON ---
<Silvina Arguelles - Last Filed: 07/15/17 13:01> History of Present Illness - History of Present Illness History of Present Illness: GI PGY4 Fellow Consult Note Patient is a 31yo male with PMHx significant for DM, severe gastroparesis, pancreatitis, H pylori gastritis who presented to the ED with complaint of abdominal pain, nausea, and vomiting. In the days leading up to admission patient admitted to having severe constipation. Pt reports that he takes pain medication when he is prescribed it by his doctor but currently ran out of medication. Prior to admission he noticed hyperglycemia on finger sticks at home. The day before admission he developed diffuse abdominal cramping, nausea with nonbloody emesis. As symptoms worsened, he came to the hospital for further evaluation. Currently, no diarrhea, fever, chills. Denies sick contacts , recent antibiotic use, recent travel. ROS: A 12pt ROS was negative except above PMHx: See HPI PSHx: Denies FHx: Mother - DM Social: +tobacco use, social EtOH use, denies illicit drug use Endo: 07/2013 - EGD - gastritis with H pylori + on biopsy Past Patient History - Infectious Disease Hx of Infectious Diseases: None - Tetanus Immunizations Tetanus Immunization: Unknown - Past Medical History & Family History Past Medical History?: Yes - Past Social History Smoking Status: Light Smoker < 10 Cigarettes Daily - CARDIAC Hx Cardiac Disorders: No - PULMONARY Hx Respiratory Disorders: No - NEUROLOGICAL Hx Neurological Disorder: No - HEENT Hx HEENT Problems: No - RENAL Hx Chronic Kidney Disease: No - ENDOCRINE/METABOLIC Hx Endocrine Disorders: Yes Hx Diabetes Mellitus Type 1: Yes - HEMATOLOGICAL/ONCOLOGICAL Hx Blood Disorders: No - INTEGUMENTARY Hx Dermatological Problems: No - MUSCULOSKELETAL/RHEUMATOLOGICAL Hx Falls: No - GASTROINTESTINAL Hx Gastritis: Yes Hx Pancreatitis: Yes - GENITOURINARY/GYNECOLOGICAL Hx Genitourinary Disorders: No - PSYCHIATRIC Hx Substance Use: No - SURGICAL HISTORY Hx Surgeries: Yes - ANESTHESIA Hx Anesthesia: Yes Hx Anesthesia Reactions: No Hx Malignant Hyperthermia: No Meds Allergies/Adverse Reactions: Allergies Allergy/AdvReac Type Severity Reaction Status Date / Time No Known Allergies Allergy Verified 07/14/17 19:17 - Medications Medications: Current Medications Enoxaparin Sodium (Lovenox) 40 mg SC DAILY JULIANE Last Admin: 07/15/17 10:15 Dose: 40 mg Insulin Aspart (Novolog) 15 unit SC BID [facility] Last Admin: 07/15/17 10:10 Dose: 15 unit Insulin Aspart (Novolog) 0 unit SC ACHS JULIANE PRN Reason: Protocol Last Admin: 07/15/17 12:06 Dose: 2 unit Metoclopramide HCl (Reglan) 10 mg PO ACHS [facility] Ondansetron HCl (Zofran Inj) 4 mg IVP Q8 PRN PRN Reason: Nausea/Vomiting Pantoprazole Sodium (Protonix Inj) 40 mg IVP DAILY [facility] Last Admin: 07/15/17 10:15 Dose: 40 mg Polyethylene Glycol (Miralax) 17 gm PO BID [facility] Sucralfate (Carafate Tab) 1 gm PO TID [facility] Physical Exam - Constitutional Appears: Non-toxic, No Acute Distress - Head Exam Head Exam: ATRAUMATIC, NORMAL INSPECTION, NORMOCEPHALIC - Eye Exam Eye Exam: EOMI, PERRL Pupil Exam: PERRL - ENT Exam ENT Exam: Mucous Membranes Moist - Neck Exam Neck exam: Positive for: Normal Inspection - Respiratory Exam Respiratory Exam: NORMAL BREATHING PATTERN - Cardiovascular Exam Cardiovascular Exam: REGULAR RHYTHM, RRR - GI/Abdominal Exam GI & Abdominal Exam: Normal Bowel Sounds, Soft, Tenderness. absent: Distended - Extremities Exam Extremities exam: Positive for: normal inspection - Back Exam Back exam: NORMAL INSPECTION - Neurological Exam Neurological exam: Alert, Oriented x3 - Psychiatric Exam Psychiatric exam: Normal Affect, Normal Mood - Skin Skin Exam: Dry, Intact, Normal Color, Warm Results - Vital Signs Recent Vital Signs: Last Vital Signs Temp 98.2 F 07/15/17 11:40 Pulse 100 H 07/15/17 11:40 Resp 18 07/15/17 11:40 BP 111/61 07/15/17 11:40 Pulse Ox 100 07/15/17 11:40 - Labs Result Diagrams: 07/14/17 19:50 07/14/17 19:50 Labs: Laboratory Results - last 24 hr 07/14/17 07/14/17 07/14/17 19:50 19:50 21:00 WBC 5.6 RBC 4.87 Hgb 14.8 Hct 44.0 MCV 90.3 MCH 30.5 MCHC 33.7 RDW 14.5 Plt Count 286 MPV 9.8 Neut % (Auto) 82.4 H Lymph % (Auto) 14.6 L [place] % (Auto) 2.8 Eos % (Auto) 0.0 Baso % (Auto) 0.2 Neut # 4.6 Lymph # 0.8 L [place] # 0.2 Eos # 0.0 Baso # 0.0 Sodium 137 Potassium 4.1 Chloride 94 L Carbon Dioxide 30 Anion Gap 17 BUN 19 Creatinine 0.8 Est GFR ( Amer) > 60 Est GFR (Non-Af Amer) > 60 POC Glucose (mg/dL) Random Glucose 352 H Calcium 8.9 Total Bilirubin 1.3 AST 24 ALT 39 Alkaline Phosphatase 103 Total Protein 8.0 Albumin 4.5 Globulin 3.5 Albumin/Globulin Ratio 1.3 Lipase 25 Urine Color Yellow Urine Clarity Clear Urine pH 7.0 Ur Specific [place] 1.037 H Urine Protein Negative Urine Glucose (UA) 3+ H Urine Ketones 2+ H Urine Blood Negative Urine Nitrate Negative Urine Bilirubin Negative Urine Urobilinogen Normal Ur Leukocyte Esterase Neg Urine WBC (Auto) < 1 Urine RBC (Auto) 1 Serum Ketones 07/14/17 07/15/17 07/15/17 21:00 07:44 11:15 WBC RBC Hgb Hct MCV MCH MCHC RDW Plt Count MPV Neut % (Auto) Lymph % (Auto) [place] % (Auto) Eos % (Auto) Baso % (Auto) Neut # Lymph # [place] # Eos # Baso # Sodium Potassium Chloride Carbon Dioxide Anion Gap BUN Creatinine Est GFR ( Amer) Est GFR (Non-Af Amer) POC Glucose (mg/dL) 402 H* 238 H Random Glucose Calcium Total Bilirubin AST ALT Alkaline Phosphatase Total Protein Albumin Globulin Albumin/Globulin Ratio Lipase 23 Urine Color Urine Clarity Urine pH Ur Specific [place] Urine Protein Urine Glucose (UA) Urine Ketones Urine Blood Urine Nitrate Urine Bilirubin Urine Urobilinogen Ur Leukocyte Esterase Urine WBC (Auto) Urine RBC (Auto) Serum Ketones Negative Assessment & Plan - Assessment and Plan (Free Text) Assessment: Patient is a 31yo male with PMHx significant for DM, severe gastroparesis, pancreatitis, H pylori gastritis (untreated) who presented to the ED with complaint of abdominal pain. 1. Constipation 2. Abdominal pain 3. Gastroparesis 4. Uncontrolled DM Plan: -Continue supportive car with pain control and anti-emetics, avoid opioids as can worsen symptoms -Reglan 10mg po QACHS -PPI daily -Carafate daily -Clear liquid diet, advance diet as tolerated; would give 6 small meals, low fat , soft -Bowel regimen for constipation -Control DM; pt has hyperglycemia BG 300-400 range -Please call with any questions or concerns <Dragan Gomez - Last Filed: 07/15/17 13:12> Meds - Medications Medications: Current Medications Enoxaparin Sodium (Lovenox) 40 mg SC DAILY [facility] Last Admin: 07/15/17 10:15 Dose: 40 mg Insulin Aspart (Novolog) 15 unit SC BID [facility] Last Admin: 07/15/17 10:10 Dose: 15 unit Insulin Aspart (Novolog) 0 unit SC ACHS [facility]UL[facility]E PRN Reason: Protocol Last Admin: 07/15/17 12:06 Dose: 2 unit Metoclopramide HCl (Reglan) 10 mg PO ACHS [facility] Ondansetron HCl (Zofran Inj) 4 mg IVP Q8 PRN PRN Reason: Nausea/Vomiting Pantoprazole Sodium (Protonix Inj) 40 mg IVP DAILY [facility] Last Admin: 07/15/17 10:15 Dose: 40 mg Polyethylene Glycol (Miralax) 17 gm PO BID [facility] Sucralfate (Carafate Tab) 1 gm PO TID [facility] Results - Vital Signs Recent Vital Signs: Last Vital Signs Temp 98.2 F 07/15/17 11:40 Pulse 100 H 07/15/17 11:40 Resp 18 07/15/17 11:40 BP 111/61 07/15/17 11:40 Pulse Ox 100 07/15/17 11:40 - Labs Result Diagrams: 07/14/17 19:50 07/14/17 19:50 Labs: Laboratory Results - last 24 hr 07/14/17 07/14/17 07/14/17 19:50 19:50 21:00 WBC 5.6 RBC 4.87 Hgb 14.8 Hct 44.0 MCV 90.3 MCH 30.5 MCHC 33.7 RDW 14.5 Plt Count 286 MPV 9.8 Neut % (Auto) 82.4 H Lymph % (Auto) 14.6 L [place] % (Auto) 2.8 Eos % (Auto) 0.0 Baso % (Auto) 0.2 Neut # 4.6 Lymph # 0.8 L [place] # 0.2 Eos # 0.0 Baso # 0.0 Sodium 137 Potassium 4.1 Chloride 94 L Carbon Dioxide 30 Anion Gap 17 BUN 19 Creatinine 0.8 Est GFR ( Amer) > 60 Est GFR (Non-Af Amer) > 60 POC Glucose (mg/dL) Random Glucose 352 H Calcium 8.9 Total Bilirubin 1.3 AST 24 ALT 39 Alkaline Phosphatase 103 Total Protein 8.0 Albumin 4.5 Globulin 3.5 Albumin/Globulin Ratio 1.3 Lipase 25 Urine Color Yellow Urine Clarity Clear Urine pH 7.0 Ur Specific [place] 1.037 H Urine Protein Negative Urine Glucose (UA) 3+ H Urine Ketones 2+ H Urine Blood Negative Urine Nitrate Negative Urine Bilirubin Negative Urine Urobilinogen Normal Ur Leukocyte Esterase Neg Urine WBC (Auto) < 1 Urine RBC (Auto) 1 Serum Ketones 07/14/17 07/15/17 07/15/17 21:00 07:44 11:15 WBC RBC Hgb Hct MCV MCH MCHC RDW Plt Count MPV Neut % (Auto) Lymph % (Auto) [place] % (Auto) Eos % (Auto) Baso % (Auto) Neut # Lymph # [place] # Eos # Baso # Sodium Potassium Chloride Carbon Dioxide Anion Gap BUN Creatinine Est GFR ( Amer) Est GFR (Non-Af Amer) POC Glucose (mg/dL) 402 H* 238 H Random Glucose Calcium Total Bilirubin AST ALT Alkaline Phosphatase Total Protein Albumin Globulin Albumin/Globulin Ratio Lipase 23 Urine Color Urine Clarity Urine pH Ur Specific [place] Urine Protein Urine Glucose (UA) Urine Ketones Urine Blood Urine Nitrate Urine Bilirubin Urine Urobilinogen Ur Leukocyte Esterase Urine WBC (Auto) Urine RBC (Auto) Serum Ketones Negative Attending/Attestation - Attestation I have personally seen and examined this patient.: Yes I have fully participated in the care of the patient.: Yes I have reviewed all pertinent clinical information: Yes Notes (Text): 07/15/17 13:10 31 year old male with long standing hhistory of poorly controlled dm and gastroparesis admitted with exacerbation. 1. Gastroparesis 2. Chronic constipation 3. GERD Plan: -Recommend PPI and carafate -recommend liquid diet / small freq meals and adat -recommend reglan 10 qid -optimize glycemic control and minimize / avoid narcotics -start bowel regimen with miralax for constipation
[2017-07-15] MEDS ORDERED: Pneumococcal 23-Valent Vaccine IM ONE (13:16)
[2017-07-15] MEDS ORDERED: Influenza Vaccine 60 mcg/0.5 mL SYR (4YR UP) IM ONE (13:17)
--- NOTE | 2017-07-15 15:52 | CP.PCM.HP ---
Past Patient History - Infectious Disease Hx of Infectious Diseases: None - Tetanus Immunizations Tetanus Immunization: Unknown - Past Medical History & Family History Past Medical History?: Yes - Past Social History Smoking Status: Light Smoker < 10 Cigarettes Daily - CARDIAC Hx Cardiac Disorders: No - PULMONARY Hx Respiratory Disorders: No - NEUROLOGICAL Hx Neurological Disorder: No - HEENT Hx HEENT Problems: No - RENAL Hx Chronic Kidney Disease: No - ENDOCRINE/METABOLIC Hx Endocrine Disorders: Yes Hx Diabetes Mellitus Type 1: Yes - HEMATOLOGICAL/ONCOLOGICAL Hx Blood Disorders: No - INTEGUMENTARY Hx Dermatological Problems: No - MUSCULOSKELETAL/RHEUMATOLOGICAL Hx Falls: No - GASTROINTESTINAL Hx Gastritis: Yes Hx Pancreatitis: Yes - GENITOURINARY/GYNECOLOGICAL Hx Genitourinary Disorders: No - PSYCHIATRIC Hx Substance Use: No - SURGICAL HISTORY Hx Surgeries: Yes - ANESTHESIA Hx Anesthesia: Yes Hx Anesthesia Reactions: No Hx Malignant Hyperthermia: No Meds Allergies/Adverse Reactions: Allergies Allergy/AdvReac Type Severity Reaction Status Date / Time No Known Allergies Allergy Verified 07/14/17 19:17 Physical Exam - Constitutional Appears: Well - Head Exam Head Exam: ATRAUMATIC, NORMAL INSPECTION, NORMOCEPHALIC - Eye Exam Eye Exam: EOMI, Normal appearance, PERRL Pupil Exam: NORMAL ACCOMODATION, PERRL - ENT Exam ENT Exam: Mucous Membranes Moist, Normal Exam - Neck Exam Neck exam: Positive for: Normal Inspection - Respiratory Exam Respiratory Exam: Decreased Breath Sounds - Cardiovascular Exam Cardiovascular Exam: REGULAR RHYTHM, +S1, +S2 - GI/Abdominal Exam GI & Abdominal Exam: Diminished Bowel Sounds - Rectal Exam Rectal Exam: Deferred Results - Vital Signs Recent Vital Signs: Last Vital Signs Temp 98.2 F 07/15/17 11:40 Pulse 100 H 07/15/17 11:40 Resp 18 07/15/17 11:40 BP 111/61 07/15/17 11:40 Pulse Ox 100 07/15/17 11:40 - Labs Result Diagrams: 07/14/17 19:50 07/14/17 19:50 Labs: Laboratory Results - last 24 hr 07/14/17 07/14/17 07/14/17 19:50 19:50 21:00 WBC 5.6 RBC 4.87 Hgb 14.8 Hct 44.0 MCV 90.3 MCH 30.5 MCHC 33.7 RDW 14.5 Plt Count 286 MPV 9.8 Neut % (Auto) 82.4 H Lymph % (Auto) 14.6 L [place] % (Auto) 2.8 Eos % (Auto) 0.0 Baso % (Auto) 0.2 Neut # 4.6 Lymph # 0.8 L [place] # 0.2 Eos # 0.0 Baso # 0.0 Sodium 137 Potassium 4.1 Chloride 94 L Carbon Dioxide 30 Anion Gap 17 BUN 19 Creatinine 0.8 Est GFR ( Amer) > 60 Est GFR (Non-Af Amer) > 60 POC Glucose (mg/dL) Random Glucose 352 H Calcium 8.9 Total Bilirubin 1.3 AST 24 ALT 39 Alkaline Phosphatase 103 Total Protein 8.0 Albumin 4.5 Globulin 3.5 Albumin/Globulin Ratio 1.3 Lipase 25 Urine Color Yellow Urine Clarity Clear Urine pH 7.0 Ur Specific [place] 1.037 H Urine Protein Negative Urine Glucose (UA) 3+ H Urine Ketones 2+ H Urine Blood Negative Urine Nitrate Negative Urine Bilirubin Negative Urine Urobilinogen Normal Ur Leukocyte Esterase Neg Urine WBC (Auto) < 1 Urine RBC (Auto) 1 Serum Ketones 07/14/17 07/15/17 07/15/17 21:00 07:44 11:15 WBC RBC Hgb Hct MCV MCH MCHC RDW Plt Count MPV Neut % (Auto) Lymph % (Auto) [place] % (Auto) Eos % (Auto) Baso % (Auto) Neut # Lymph # [place] # Eos # Baso # Sodium Potassium Chloride Carbon Dioxide Anion Gap BUN Creatinine Est GFR ( Amer) Est GFR (Non-Af Amer) POC Glucose (mg/dL) 402 H* 238 H Random Glucose Calcium Total Bilirubin AST ALT Alkaline Phosphatase Total Protein Albumin Globulin Albumin/Globulin Ratio Lipase 23 Urine Color Urine Clarity Urine pH Ur Specific [place] Urine Protein Urine Glucose (UA) Urine Ketones Urine Blood Urine Nitrate Urine Bilirubin Urine Urobilinogen Ur Leukocyte Esterase Urine WBC (Auto) Urine RBC (Auto) Serum Ketones Negative 07/15/17 11:46 WBC RBC Hgb Hct MCV MCH MCHC RDW Plt Count MPV Neut % (Auto) Lymph % (Auto) [place] % (Auto) Eos % (Auto) Baso % (Auto) Neut # Lymph # [place] # Eos # Baso # Sodium Potassium Chloride Carbon Dioxide Anion Gap BUN Creatinine Est GFR ( Amer) Est GFR (Non-Af Amer) POC Glucose (mg/dL) 212 H Random Glucose Calcium Total Bilirubin AST ALT Alkaline Phosphatase Total Protein Albumin Globulin Albumin/Globulin Ratio Lipase Urine Color Urine Clarity Urine pH Ur Specific [place] Urine Protein Urine Glucose (UA) Urine Ketones Urine Blood Urine Nitrate Urine Bilirubin Urine Urobilinogen Ur Leukocyte Esterase Urine WBC (Auto) Urine RBC (Auto) Serum Ketones
[2017-07-15 17:26] VITALS: BP 110/80; PULSE 87; RESP 20; TEMP 98; O2SAT 97
[2017-07-15] MEDS ORDERED: POLYETHYLENE GLYCOL 3350 17 GM/Dose PACKET PO SCH (18:00)
--- NOTE | 2017-07-15 21:02 | RAD ---
PROCEDURE: Radiographs of the chest and abdomen (obstructive series) HISTORY: abd pain COMPARISON: No prior. TECHNIQUE: AP radiograph of the chest, with upright and supine radiographs of the abdomen. FINDINGS: CHEST: Lungs: Clear. Cardiovascular: Normal size heart. No pulmonary vascular congestion. Pleura: No pleural fluid. No pneumothorax. Other findings: None. ABDOMEN AND PELVIS: Bowel: Unremarkable bowel gas pattern. No evidence of mechanical obstruction. Free air: None. Bones: Unremarkable. Other findings: None. IMPRESSION: Mild constipation, otherwise unremarkable radiographs of chest and abdomen. No evidence of mechanical bowel obstruction.
== END 2017-07-15 17:00 | disposition left against medical advice (07) ==
LOC: C.ER 18:22 → C.9E 07-15 00:12 → C.5S 07-15 11:00
PROVIDERS: ADMIT Internal Medicine Nephrology; ATTEND Internal Medicine Nephrology
DX: E11.43 Type 2 diabetes mellitus with diabetic autonomic (poly)neuropathy (principal); K31.84 Gastroparesis; F17.210 Nicotine dependence, cigarettes, uncomplicated; K59.00 Constipation, unspecified; E11.65 Type 2 diabetes mellitus with hyperglycemia; K21.9 Gastro-esophageal reflux disease without esophagitis
CPT/HCPCS: 74022; 80053; 81001; 82009; 82948; 83690; 85025; 96360; 96372; 96374; 99285; C9113; G0378; J1650; J1885; J2060; J2405; J7040

== ENCOUNTER 2017-09-25 21:15 | Inpatient (IN) | payer MEDICAID ==
[2017-09-25 21:15] VITALS: BMI 21.7
[2017-09-25] MEDS ORDERED: Sodium Chloride 0.9% 1,000 ML ONE (21:36)
[2017-09-25 21:39] LABS: BASO % 0.4 % (0.0-2.0); EOS % 0.2 % (0.0-4.0); HEMOGLOBIN 15.2 g/dL (12.0-18.0); MEAN CELL VOLUME 90.3 fL (80.0-94.0); MEAN CORPUSCULAR HEMOGLOBIN 30.4 pg (27.0-31.0); MEAN CORPUSCULAR HGB CONC 33.6 g/dL (33.0-37.0); MONO # 0.4 K/uL (0.0-0.8); NEUT # 12.5 K/uL (1.8-7.0); NEUT % 89.4 % (50.0-75.0); NRBC % 0.1 % (0.0-2.0); PLATELET COUNT 315 K/uL (130-400); RBC 5.02 Mil/uL (4.40-5.90); RED CELL DISTRIBUTION WIDTH 14.4 % (11.5-14.5); WHITE BLOOD COUNT 13.9 K/uL (4.8-10.8)
[2017-09-25 21:54] LABS: ALB/GLOB RATIO 1.3 (1.0-2.1); ALT/SGPT 23 U/L (21-72); AST/SGOT 26 U/L (17-59); BLOOD UREA NITROGEN 31 mg/dL (9-20); CALCIUM 9.6 mg/dl (8.6-10.4); GFR AFRICAN-AMERICAN > 60; GFR NON-AFRICAN AMERICAN > 60; LIPASE 19 U/L (23-300)
[2017-09-25] MEDS ORDERED: Sodium Chloride 0.9% 1,000 ML IV ONE (21:59)
[2017-09-25] MEDS ORDERED: (Novolin R) Insulin Human Regular 100 units/ml vial IV ONE (22:01)
--- NOTE | 2017-09-25 22:05 | C.PDOC ---
History Of Present Illness 32 year old male with PMHx of gastritis and DM presents to the ED c/o evaluation of abdominal pain, bloody vomit, diarrhea that started today. Patient states he was not able to eat anything today. While in the ED patient is moaning in pain. Patient denies fever, chills, back pain, dysuria, hematuria , sick contacts. Chief Complaint (Nursing): Abdominal Pain History Per: Patient History/Exam Limitations: no limitations Onset/Duration Of Symptoms: Hrs Current Symptoms Are (Timing): Still Present Severity: Moderate Location Of Pain/Discomfort: Diffuse Radiation Of Pain To:: None Quality Of Discomfort: "Pain" Associated Symptoms: Vomiting Exacerbating Factors: None Alleviating Factors: None Recent travel outside of the [place]: No Additional History Per: Patient Past Medical History Reviewed: Historical Data, Nursing Documentation, Vital Signs Vital Signs: Last Vital Signs Temp 98.4 F 09/26/17 01:33 Pulse 110 H 09/26/17 01:33 Resp 16 09/26/17 01:33 BP 147/79 09/26/17 01:33 Pulse Ox 100 09/26/17 01:33 - Medical History PMH: Diabetes, Gastritis, Pancreatitis Denies: Chronic Kidney Disease Surgical History: Endoscopy - [facility] Procedures ESOPHAGOGASTRODUODENOSCOPY [EGD] W/CLOSED BIOPSY (07/30/13) Family History: States: Diabetes - Social History Hx Tobacco Use: Yes Hx Alcohol Use: No Hx Substance Use: No - Immunization History Hx Tetanus Toxoid Vaccination: No Hx Influenza Vaccination: No Hx Pneumococcal Vaccination: No Review Of Systems Constitutional: Negative for: Fever, Chills Cardiovascular: Negative for: Chest Pain Respiratory: Negative for: Cough, Shortness of Breath Gastrointestinal: Positive for: Vomiting, Abdominal Pain Genitourinary: Negative for: Dysuria Skin: Negative for: Rash Neurological: Negative for: Weakness, Numbness Physical Exam - Physical Exam Appears: Non-toxic, No Acute Distress Skin: Normal Color, Warm, Dry Head: Atraumatic, Normacephalic Eye(s): bilateral: Normal Inspection Nose: No Discharge Oral Mucosa: Dry Neck: Normal ROM, Supple Chest: Symmetrical Cardiovascular: Rhythm Regular, No Murmur Respiratory: Normal Breath Sounds, No Rales, No Rhonchi, No Wheezing Gastrointestinal/Abdominal: Soft, Tenderness (epigastric), Guarding (diffuse), No Rebound Extremity: Normal ROM, No Tenderness, No Swelling Neurological/Psych: Oriented x3 Gait: Unable To Assess ED Course And Treatment - Laboratory Results Result Diagrams: 09/25/17 21:35 09/25/17 21:35 Lab Interpretation: Abnormal Interpretation Of Abnormal: Pt with hyperglycemia,mildly elevated anion gap.Will tx for DKA.Insulin bolus followed by drip initiated in ED ECG Interpretation: Normal, No Acute Changes O2 Sat by Pulse Oximetry: 99 (On RA) Pulse Ox Interpretation: Normal - Radiology CXR: Interpreted by Pr CXR Interpretation: Yes: No Acute Disease Medical Decision Making Medical Decision Making: Impression: abdominal pain Plan: * Labs * Morphine 4 mg IVP * Insulin 10 units IV * IV fluids * Zofran 4 mg IVP * UA Will admit for DKA Disposition - Disposition Disposition: HOSPITALIZED Disposition Time: 02:25 Condition: GUARDED - Clinical Impression Clinical Impression: Diabetic ketoacidosis - Scribe Statement The provider has reviewed the documentation as recorded by the Scribe Kwame Brown All medical record entries made by the Scribe were at my direction and personally dictated by me. I have reviewed the chart and agree that the record accurately reflects my personal performance of the history, physical exam, medical decision making, and the department course for this patient. I have also personally directed, reviewed, and agree with the discharge instructions and disposition.
[2017-09-25 22:18] LABS: LYMPHOCYTE 5 % (20-40); MONOCYTE 6 % (0-10); NEUTROPHIL 89 % (50-75); PLATELET ESTIMATE NORMAL (NORMAL); TOTAL CELLS COUNTED 100
[2017-09-25] MEDS ORDERED: Morphine 4 MG/ML VIAL ONE (22:18)
[2017-09-25] MEDS ORDERED: (Novolin R) Insulin Human Regular 100 units/ml vial ONE (22:18)
[2017-09-25 22:26] LABS: URINE BILIRUBIN NEGATIVE (NEGATIVE); URINE BLOOD NEGATIVE (NEGATIVE); URINE CLARITY Clear (Clear); URINE COLOR Straw (YELLOW); URINE GLUCOSE (UA) 3+ mg/dL (Normal); URINE LEUKOCYTE ESTERASE NEG Leu/uL (Negative); URINE PROTEIN NEGATIVE (NEGATIVE); URINE UROBILINOGEN NORMAL mg/dL (0.2-1.0)
[2017-09-25 22:40] LABS: BARBITURATES, UR NEGATIVE (NEGATIVE); BENZODIAZEPINES, UR NEGATIVE (NEGATIVE); OPIATES, UR NEGATIVE (NEGATIVE); PHENCYCLIDINE, UR NEGATIVE (NEGATIVE)
[2017-09-25 23:43] LABS: ABG ALLEN TEST POS; ARTERIAL BLOOD GAS HCO3 22.6 mmol/L (21-28); ARTERIAL BLOOD GAS HEMOGLOBIN 13.5 g/dL (11.7-17.4); ARTERIAL BLOOD GAS O2 SAT 97.7 % (95-98); ARTERIAL BLOOD GAS PCO2 38 mm/Hg (35-45); ARTERIAL BLOOD GAS PH 7.37 (7.35-7.45); ARTERIAL BLOOD GAS PO2 77 mm/Hg (80-100); ARTERIAL BLOOD GAS TCO2 23.2 mmol/L (22-28)
[2017-09-26] MEDS ORDERED: Insulin Human Regular 100 UNIT in Sodium Chloride 0.9% 99 ML SC SCH ×3 (00:30→02:30)
[2017-09-26] MEDS: Insulin Human Regular 100 UNIT in Sodium Chloride 0.9% 99 ML IV SCH ×2 (00:45→02:10)
[2017-09-26] MEDS ORDERED: Sodium Chloride 0.9% 1,000 ML IV SCH (01:45)
--- NOTE | 2017-09-26 02:52 | CP.PCM.CON ---
History of Present Illness - History of Present Illness History of Present Illness: 32 year old male with PMHx of DM x 20 yrs,gastroparesis, pancreatitis,H.pylori infection,polysubstance abuse presents to the ED c/o of abdominal pain, vomiting x 2 days. Patient states he was not able to eat anything today. While in the ED patient is moaning in pain. Patient denies fever, chills, back pain, dysuria, hematuria, sick contacts,cough,sore throat. In ER Found to be in DKA Review of Systems - Constitutional Constitutional: absent: Anorexia, Chills, Fatigue, Fever, Headache, Malaise, Weakness - EENT Eyes: absent: Blurred Vision, Diplopia Nose/Mouth/Throat: absent: Nasal Discharge, Nasal Obstruction, Sore Throat - Cardiovascular Cardiovascular: absent: Chest Pain, Dyspnea, Palpitations - Respiratory Respiratory: absent: Cough, Dyspnea - Gastrointestinal Gastrointestinal: Abdominal Pain, Nausea, Vomiting - Genitourinary Genitourinary: absent: Difficulty Urinating, Dysuria - Integumentary Integumentary: absent: Rash - Neurological Neurological: absent: Confusion, Weakness - Hematologic/Lymphatic Hematologic: absent: Easy Bleeding Past Patient History - Infectious Disease Hx of Infectious Diseases: None - Tetanus Immunizations Tetanus Immunization: Unknown - Past Medical History & Family History Past Medical History?: Yes - Past Social History Smoking Status: Light Smoker < 10 Cigarettes Daily Chewing Tobacco Use: Yes Alcohol: Occasional Drugs: Cannabis - CARDIAC Hx Cardiac Disorders: No - PULMONARY Hx Respiratory Disorders: No - NEUROLOGICAL Hx Neurological Disorder: No - HEENT Hx HEENT Problems: No - RENAL Hx Chronic Kidney Disease: No - ENDOCRINE/METABOLIC Hx Endocrine Disorders: Yes Hx Diabetes Mellitus Type 1: Yes - HEMATOLOGICAL/ONCOLOGICAL Hx Blood Disorders: No - INTEGUMENTARY Hx Dermatological Problems: No - MUSCULOSKELETAL/RHEUMATOLOGICAL Hx Musculoskeletal Disorders: Yes Hx Falls: Yes - GASTROINTESTINAL Hx Gastritis: Yes Hx Pancreatitis: Yes - GENITOURINARY/GYNECOLOGICAL Hx Genitourinary Disorders: No - PSYCHIATRIC Hx Substance Use: No - SURGICAL HISTORY Hx Surgeries: No - ANESTHESIA Hx Anesthesia: Yes Hx Anesthesia Reactions: No Hx Malignant Hyperthermia: No Meds Allergies/Adverse Reactions: Allergies Allergy/AdvReac Type Severity Reaction Status Date / Time No Known Allergies Allergy Verified 07/14/17 19:17 - Medications Medications: Current Medications Insulin Human Regular 100 unit (/ Sodium Chloride) 100 mls @ 2 mls/hr IV .Q24H JULIANE Last Admin: 09/26/17 00:45 Dose: 2 mls/hr Sodium Chloride (Sodium Chloride 0.9%) 1,000 mls @ 125 mls/hr IV .Q8H JULIANE Last Admin: 09/26/17 01:50 Dose: 125 mls/hr Insulin Human Regular 100 unit (/ Sodium Chloride) 100 mls @ 4 mls/hr SC .Q24H JULIANE; 4 UNIT/HR PRN Reason: Protocol Physical Exam - Constitutional Appears: No Acute Distress - Head Exam Head Exam: ATRAUMATIC, NORMAL INSPECTION, NORMOCEPHALIC - Eye Exam Eye Exam: EOMI, Normal appearance, PERRL Pupil Exam: NORMAL ACCOMODATION - ENT Exam ENT Exam: Mucous Membranes Dry - Neck Exam Neck exam: Positive for: Normal Inspection. Negative for: Lymphadenopathy, Tenderness - Respiratory Exam Respiratory Exam: Clear to Auscultation Bilateral - Cardiovascular Exam Cardiovascular Exam: Tachycardia, REGULAR RHYTHM. absent: JVD - GI/Abdominal Exam GI & Abdominal Exam: Guarding, Normal Bowel Sounds, Soft, Tenderness. absent: Rebound - Extremities Exam Extremities exam: Positive for: normal inspection. Negative for: calf tenderness, pedal edema - Neurological Exam Neurological exam: Alert, Oriented x3 - Skin Skin Exam: Normal Color, Warm Results - Vital Signs Recent Vital Signs: Last Vital Signs Temp 98.4 F 09/26/17 01:33 Pulse 110 H 09/26/17 01:33 Resp 16 09/26/17 01:33 BP 147/79 09/26/17 01:33 Pulse Ox 99 09/26/17 02:25 - Labs Result Diagrams: 09/25/17 21:35 09/25/17 21:35 Labs: Laboratory Results - last 24 hr 09/25/17 09/25/17 09/25/17 21:35 21:35 22:18 WBC 13.9 H D RBC 5.02 Hgb 15.2 Hct 45.3 MCV 90.3 MCH 30.4 MCHC 33.6 RDW 14.4 Plt Count 315 MPV 10.0 Neut % (Auto) 89.4 H Lymph % (Auto) 7.0 L [place] % (Auto) 3.0 Eos % (Auto) 0.2 Baso % (Auto) 0.4 Neut # (Auto) 12.5 H Lymph # (Auto) 1.0 [place] # (Auto) 0.4 Eos # (Auto) 0.0 Baso # (Auto) 0.0 Neutrophils % (Manual) 89 H Lymphocytes % (Manual) 5 L Monocytes % (Manual) 6 Platelet Estimate Normal RBC Morphology Normal Puncture Site pCO2 pO2 HCO3 ABG pH ABG Total CO2 ABG O2 Saturation ABG Base Excess ABG Hemoglobin ABG Carboxyhemoglobin POC ABG HHb (Measured) ABG Methemoglobin Nixon Test A-a O2 Difference Respiratory Index Hgb O2 Saturation FiO2 Sodium 142 Potassium 4.4 Chloride 93 L Carbon Dioxide 22 Anion Gap 32 H BUN 31 H Creatinine 1.0 Est GFR ( Amer) > 60 Est GFR (Non-Af Amer) > 60 POC Glucose (mg/dL) Random Glucose 483 H* D Calcium 9.6 Total Bilirubin 1.0 AST 26 ALT 23 Alkaline Phosphatase 130 H D Total Protein 9.0 H Albumin 5.0 Globulin 4.0 H Albumin/Globulin Ratio 1.3 Lipase 19 L Urine Color Straw Urine Clarity Clear Urine pH 5.0 Ur Specific [place] 1.025 Urine Protein Negative Urine Glucose (UA) 3+ H Urine Ketones 2+ H Urine Blood Negative Urine Nitrate Negative Urine Bilirubin Negative Urine Urobilinogen Normal Ur Leukocyte Esterase Neg Urine WBC (Auto) < 1 Urine RBC (Auto) < 1 Urine Opiates Screen Urine Methadone Screen Ur Barbiturates Screen Ur Phencyclidine Scrn Ur Amphetamines Screen U Benzodiazepines Scrn U Oth Cocaine Metabols U Cannabinoids Screen Serum Ketones Small 09/25/17 09/25/17 09/25/17 22:18 23:32 23:40 WBC RBC Hgb Hct MCV MCH MCHC RDW Plt Count MPV Neut % (Auto) Lymph % (Auto) [place] % (Auto) Eos % (Auto) Baso % (Auto) Neut # (Auto) Lymph # (Auto) [place] # (Auto) Eos # (Auto) Baso # (Auto) Neutrophils % (Manual) Lymphocytes % (Manual) Monocytes % (Manual) Platelet Estimate RBC Morphology Puncture Site Rr pCO2 38 pO2 77 L HCO3 22.6 ABG pH 7.37 ABG Total CO2 23.2 ABG O2 Saturation 97.7 ABG Base Excess -2.9 L ABG Hemoglobin 13.5 ABG Carboxyhemoglobin 2.2 H POC ABG HHb (Measured) 2.2 ABG Methemoglobin 1.3 Nixon Test Pos A-a O2 Difference 25.0 Respiratory Index 0.3 Hgb O2 Saturation 94.4 L FiO2 21.0 Sodium Potassium Chloride Carbon Dioxide Anion Gap BUN Creatinine Est GFR ( Amer) Est GFR (Non-Af Amer) POC Glucose (mg/dL) 323 H Random Glucose Calcium Total Bilirubin AST ALT Alkaline Phosphatase Total Protein Albumin Globulin Albumin/Globulin Ratio Lipase Urine Color Urine Clarity Urine pH Ur Specific [place] Urine Protein Urine Glucose (UA) Urine Ketones Urine Blood Urine Nitrate Urine Bilirubin Urine Urobilinogen Ur Leukocyte Esterase Urine WBC (Auto) Urine RBC (Auto) Urine Opiates Screen Negative Urine Methadone Screen Negative Ur Barbiturates Screen Negative Ur Phencyclidine Scrn Negative Ur Amphetamines Screen Negative U Benzodiazepines Scrn Negative U Oth Cocaine Metabols Negative U Cannabinoids Screen Positive H Serum Ketones 09/26/17 09/26/17 00:32 01:40 WBC RBC Hgb Hct MCV MCH MCHC RDW Plt Count MPV Neut % (Auto) Lymph % (Auto) [place] % (Auto) Eos % (Auto) Baso % (Auto) Neut # (Auto) Lymph # (Auto) [place] # (Auto) Eos # (Auto) Baso # (Auto) Neutrophils % (Manual) Lymphocytes % (Manual) Monocytes % (Manual) Platelet Estimate RBC Morphology Puncture Site pCO2 pO2 HCO3 ABG pH ABG Total CO2 ABG O2 Saturation ABG Base Excess ABG Hemoglobin ABG Carboxyhemoglobin POC ABG HHb (Measured) ABG Methemoglobin Nixon Test A-a O2 Difference Respiratory Index Hgb O2 Saturation FiO2 Sodium Potassium Chloride Carbon Dioxide Anion Gap BUN Creatinine Est GFR ( Amer) Est GFR (Non-Af Amer) POC Glucose (mg/dL) 295 H 329 H Random Glucose Calcium Total Bilirubin AST ALT Alkaline Phosphatase Total Protein Albumin Globulin Albumin/Globulin Ratio Lipase Urine Color Urine Clarity Urine pH Ur Specific [place] Urine Protein Urine Glucose (UA) Urine Ketones Urine Blood Urine Nitrate Urine Bilirubin Urine Urobilinogen Ur Leukocyte Esterase Urine WBC (Auto) Urine RBC (Auto) Urine Opiates Screen Urine Methadone Screen Ur Barbiturates Screen Ur Phencyclidine Scrn Ur Amphetamines Screen U Benzodiazepines Scrn U Oth Cocaine Metabols U Cannabinoids Screen Serum Ketones Assessment & Plan - Assessment and Plan (Free Text) Assessment: 1.DKA- IV fluids Insulin f/u labs 2.gastroparesis PPI,reglan 3.H/o pancreatitis lipase normal 4.Drug abuse
[2017-09-26] MEDS ORDERED: Sodium Chloride 0.9% 1,000 ML IV ONE (03:02)
[2017-09-26] MEDS ORDERED: Insulin Human Regular 100 UNIT in Sodium Chloride 0.9% 99 ML IV SCH (03:21)
[2017-09-26 05:44] LABS: BASO # 0.1 K/uL (0.0-0.2); BASO % 0.4 % (0.0-2.0); EOS # 0.1 K/uL (0.0-0.7); EOS % 0.3 % (0.0-4.0); LYMPH # 1.9 K/uL (1.0-4.3); LYMPH % 9.6 % (20.0-40.0); MEAN CELL VOLUME 89.5 fL (80.0-94.0); MEAN CORPUSCULAR HEMOGLOBIN 30.3 pg (27.0-31.0); MEAN CORPUSCULAR HGB CONC 33.8 g/dL (33.0-37.0); MEAN PLATELET VOLUME 9.8 fL (7.2-11.7); MONO % 5.2 % (0.0-10.0); NEUT # 16.4 K/uL (1.8-7.0); NEUT % 84.5 % (50.0-75.0); PLATELET COUNT 259 K/uL (130-400); RBC 4.62 Mil/uL (4.40-5.90); RED CELL DISTRIBUTION WIDTH 14.1 % (11.5-14.5); WHITE BLOOD COUNT 19.5 K/uL (4.8-10.8)
[2017-09-26 06:12] LABS: ALB/GLOB RATIO 1.4 (1.0-2.1); ALBUMIN 4.4 g/dL (3.5-5.0); ALT/SGPT 21 U/L (21-72); AST/SGOT 19 U/L (17-59); BLOOD UREA NITROGEN 30 mg/dL (9-20); CALCIUM 8.5 mg/dl (8.6-10.4); GFR AFRICAN-AMERICAN > 60; GFR NON-AFRICAN AMERICAN > 60
[2017-09-26] MEDS: Potassium Phosphate 30 MMOLE in Sodium Chloride 0.9% 500 ML IV SCH ×2 (07:49→15:45)
[2017-09-26 08:34] LABS: BLOOD UREA NITROGEN 31 mg/dL (9-20); CALCIUM 8.6 mg/dl (8.6-10.4); GFR AFRICAN-AMERICAN > 60; GFR NON-AFRICAN AMERICAN > 60
[2017-09-26 08:38] LABS: BANDS 4 % (0-2); LYMPHOCYTE 11 % (20-40); MONOCYTE 4 % (0-10); NEUTROPHIL 81 % (50-75); PLATELET ESTIMATE NORMAL (NORMAL); TOTAL CELLS COUNTED 100
--- NOTE | 2017-09-26 08:41 | RAD ---
HISTORY: r/o pneumonia COMPARISON: 01/13/2015 FINDINGS: LUNGS: No active pulmonary disease. PLEURA: No significant pleural effusion identified, no pneumothorax apparent. CARDIOVASCULAR: Normal. OSSEOUS STRUCTURES: No significant abnormalities. VISUALIZED UPPER ABDOMEN: Normal. OTHER FINDINGS: None. IMPRESSION: No active disease.
--- NOTE | 2017-09-26 09:02 | RAD ---
HISTORY: pain COMPARISON: 08/22/2015 FINDINGS: BOWEL: Normal. No obstruction. No free air. BONES: Normal. OTHER FINDINGS: None. IMPRESSION: No active disease.
[2017-09-26] MEDS: (Novolog Mix 70/30) Insulin Aspart/Insulin Aspar 100 units/ml SC SCH ×2 (10:03→18:38)
[2017-09-26] MEDS: (Novolog) Insulin Aspart, Recombinant 100 u/ml 10 ml vial SC SCH ×3 (11:23→21:17)
--- NOTE | 2017-09-26 16:03 | CP.PCM.HP ---
Past Patient History - Infectious Disease Hx of Infectious Diseases: None - Tetanus Immunizations Tetanus Immunization: Unknown - Past Medical History & Family History Past Medical History?: Yes - Past Social History Smoking Status: Light Smoker < 10 Cigarettes Daily Chewing Tobacco Use: Yes Alcohol: Occasional Drugs: Cannabis - CARDIAC Hx Cardiac Disorders: No - PULMONARY Hx Respiratory Disorders: No - NEUROLOGICAL Hx Neurological Disorder: No - HEENT Hx HEENT Problems: No - RENAL Hx Chronic Kidney Disease: No - ENDOCRINE/METABOLIC Hx Endocrine Disorders: Yes Hx Diabetes Mellitus Type 1: Yes - HEMATOLOGICAL/ONCOLOGICAL Hx Blood Disorders: No - INTEGUMENTARY Hx Dermatological Problems: No - MUSCULOSKELETAL/RHEUMATOLOGICAL Hx Musculoskeletal Disorders: Yes Hx Falls: Yes - GASTROINTESTINAL Hx Gastritis: Yes Hx Pancreatitis: Yes - GENITOURINARY/GYNECOLOGICAL Hx Genitourinary Disorders: No - PSYCHIATRIC Hx Substance Use: No - SURGICAL HISTORY Hx Surgeries: No - ANESTHESIA Hx Anesthesia: Yes Hx Anesthesia Reactions: No Hx Malignant Hyperthermia: No Meds Allergies/Adverse Reactions: Allergies Allergy/AdvReac Type Severity Reaction Status Date / Time No Known Allergies Allergy Verified 07/14/17 19:17 Physical Exam - Constitutional Appears: Well - Head Exam Head Exam: ATRAUMATIC, NORMAL INSPECTION, NORMOCEPHALIC - Eye Exam Eye Exam: EOMI, Normal appearance, PERRL Pupil Exam: NORMAL ACCOMODATION, PERRL - ENT Exam ENT Exam: Mucous Membranes Moist, Normal Exam - Neck Exam Neck exam: Positive for: Normal Inspection - Respiratory Exam Respiratory Exam: Decreased Breath Sounds - Cardiovascular Exam Cardiovascular Exam: REGULAR RHYTHM, +S1, +S2 - GI/Abdominal Exam GI & Abdominal Exam: Diminished Bowel Sounds, Soft - Rectal Exam Rectal Exam: Deferred Results - Vital Signs Recent Vital Signs: Last Vital Signs Temp 99 F 09/26/17 15:54 Pulse 98 H 09/26/17 15:51 Resp 9 L 09/26/17 15:51 BP 119/77 09/26/17 15:51 Pulse Ox 100 09/26/17 12:20 - Labs Result Diagrams: 09/26/17 05:39 09/26/17 08:00 Labs: Laboratory Results - last 24 hr 09/25/17 09/25/17 09/25/17 21:18 21:35 21:35 WBC 13.9 H D RBC 5.02 Hgb 15.2 Hct 45.3 MCV 90.3 MCH 30.4 MCHC 33.6 RDW 14.4 Plt Count 315 MPV 10.0 Neut % (Auto) 89.4 H Lymph % (Auto) 7.0 L [place] % (Auto) 3.0 Eos % (Auto) 0.2 Baso % (Auto) 0.4 Neut # (Auto) 12.5 H Lymph # (Auto) 1.0 [place] # (Auto) 0.4 Eos # (Auto) 0.0 Baso # (Auto) 0.0 Neutrophils % (Manual) 89 H Band Neutrophils % Lymphocytes % (Manual) 5 L Monocytes % (Manual) 6 Platelet Estimate Normal RBC Morphology Normal Puncture Site pCO2 pO2 HCO3 ABG pH ABG Total CO2 ABG O2 Saturation ABG Base Excess ABG Hemoglobin ABG Carboxyhemoglobin POC ABG HHb (Measured) ABG Methemoglobin Nixon Test A-a O2 Difference Respiratory Index Hgb O2 Saturation FiO2 Sodium 142 Potassium 4.4 Chloride 93 L Carbon Dioxide 22 Anion Gap 32 H BUN 31 H Creatinine 1.0 Est GFR ( Amer) > 60 Est GFR (Non-Af Amer) > 60 POC Glucose (mg/dL) 439 H* Random Glucose 483 H* D Hemoglobin A1c Calcium 9.6 Phosphorus Magnesium Total Bilirubin 1.0 AST 26 ALT 23 Alkaline Phosphatase 130 H D Total Protein 9.0 H Albumin 5.0 Globulin 4.0 H Albumin/Globulin Ratio 1.3 Lipase 19 L Urine Color Urine Clarity Urine pH Ur Specific [place] Urine Protein Urine Glucose (UA) Urine Ketones Urine Blood Urine Nitrate Urine Bilirubin Urine Urobilinogen Ur Leukocyte Esterase Urine WBC (Auto) Urine RBC (Auto) Urine Opiates Screen Urine Methadone Screen Ur Barbiturates Screen Ur Phencyclidine Scrn Ur Amphetamines Screen U Benzodiazepines Scrn U Oth Cocaine Metabols U Cannabinoids Screen Serum Ketones Small 09/25/17 09/25/17 09/25/17 22:18 22:18 23:32 WBC RBC Hgb Hct MCV MCH MCHC RDW Plt Count MPV Neut % (Auto) Lymph % (Auto) [place] % (Auto) Eos % (Auto) Baso % (Auto) Neut # (Auto) Lymph # (Auto) [place] # (Auto) Eos # (Auto) Baso # (Auto) Neutrophils % (Manual) Band Neutrophils % Lymphocytes % (Manual) Monocytes % (Manual) Platelet Estimate RBC Morphology Puncture Site pCO2 pO2 HCO3 ABG pH ABG Total CO2 ABG O2 Saturation ABG Base Excess ABG Hemoglobin ABG Carboxyhemoglobin POC ABG HHb (Measured) ABG Methemoglobin Nixon Test A-a O2 Difference Respiratory Index Hgb O2 Saturation FiO2 Sodium Potassium Chloride Carbon Dioxide Anion Gap BUN Creatinine Est GFR ( Amer) Est GFR (Non-Af Amer) POC Glucose (mg/dL) 323 H Random Glucose Hemoglobin A1c Calcium Phosphorus Magnesium Total Bilirubin AST ALT Alkaline Phosphatase Total Protein Albumin Globulin Albumin/Globulin Ratio Lipase Urine Color Straw Urine Clarity Clear Urine pH 5.0 Ur Specific [place] 1.025 Urine Protein Negative Urine Glucose (UA) 3+ H Urine Ketones 2+ H Urine Blood Negative Urine Nitrate Negative Urine Bilirubin Negative Urine Urobilinogen Normal Ur Leukocyte Esterase Neg Urine WBC (Auto) < 1 Urine RBC (Auto) < 1 Urine Opiates Screen Negative Urine Methadone Screen Negative Ur Barbiturates Screen Negative Ur Phencyclidine Scrn Negative Ur Amphetamines Screen Negative U Benzodiazepines Scrn Negative U Oth Cocaine Metabols Negative U Cannabinoids Screen Positive H Serum Ketones 09/25/17 09/26/17 09/26/17 23:40 00:32 01:40 WBC RBC Hgb Hct MCV MCH MCHC RDW Plt Count MPV Neut % (Auto) Lymph % (Auto) [place] % (Auto) Eos % (Auto) Baso % (Auto) Neut # (Auto) Lymph # (Auto) [place] # (Auto) Eos # (Auto) Baso # (Auto) Neutrophils % (Manual) Band Neutrophils % Lymphocytes % (Manual) Monocytes % (Manual) Platelet Estimate RBC Morphology Puncture Site Rr pCO2 38 pO2 77 L HCO3 22.6 ABG pH 7.37 ABG Total CO2 23.2 ABG O2 Saturation 97.7 ABG Base Excess -2.9 L ABG Hemoglobin 13.5 ABG Carboxyhemoglobin 2.2 H POC ABG HHb (Measured) 2.2 ABG Methemoglobin 1.3 Nixon Test Pos A-a O2 Difference 25.0 Respiratory Index 0.3 Hgb O2 Saturation 94.4 L FiO2 21.0 Sodium Potassium Chloride Carbon Dioxide Anion Gap BUN Creatinine Est GFR ( Amer) Est GFR (Non-Af Amer) POC Glucose (mg/dL) 295 H 329 H Random Glucose Hemoglobin A1c Calcium Phosphorus Magnesium Total Bilirubin AST ALT Alkaline Phosphatase Total Protein Albumin Globulin Albumin/Globulin Ratio Lipase Urine Color Urine Clarity Urine pH Ur Specific [place] Urine Protein Urine Glucose (UA) Urine Ketones Urine Blood Urine Nitrate Urine Bilirubin Urine Urobilinogen Ur Leukocyte Esterase Urine WBC (Auto) Urine RBC (Auto) Urine Opiates Screen Urine Methadone Screen Ur Barbiturates Screen Ur Phencyclidine Scrn Ur Amphetamines Screen U Benzodiazepines Scrn U Oth Cocaine Metabols U Cannabinoids Screen Serum Ketones 09/26/17 09/26/17 09/26/17 02:59 04:11 04:57 WBC RBC Hgb Hct MCV MCH MCHC RDW Plt Count MPV Neut % (Auto) Lymph % (Auto) [place] % (Auto) Eos % (Auto) Baso % (Auto) Neut # (Auto) Lymph # (Auto) [place] # (Auto) Eos # (Auto) Baso # (Auto) Neutrophils % (Manual) Band Neutrophils % Lymphocytes % (Manual) Monocytes % (Manual) Platelet Estimate RBC Morphology Puncture Site pCO2 pO2 HCO3 ABG pH ABG Total CO2 ABG O2 Saturation ABG Base Excess ABG Hemoglobin ABG Carboxyhemoglobin POC ABG HHb (Measured) ABG Methemoglobin Nixon Test A-a O2 Difference Respiratory Index Hgb O2 Saturation FiO2 Sodium Potassium Chloride Carbon Dioxide Anion Gap BUN Creatinine Est GFR ( Amer) Est GFR (Non-Af Amer) POC Glucose (mg/dL) 249 H 205 H 175 H Random Glucose Hemoglobin A1c Calcium Phosphorus Magnesium Total Bilirubin AST ALT Alkaline Phosphatase Total Protein Albumin Globulin Albumin/Globulin Ratio Lipase Urine Color Urine Clarity Urine pH Ur Specific [place] Urine Protein Urine Glucose (UA) Urine Ketones Urine Blood Urine Nitrate Urine Bilirubin Urine Urobilinogen Ur Leukocyte Esterase Urine WBC (Auto) Urine RBC (Auto) Urine Opiates Screen Urine Methadone Screen Ur Barbiturates Screen Ur Phencyclidine Scrn Ur Amphetamines Screen U Benzodiazepines Scrn U Oth Cocaine Metabols U Cannabinoids Screen Serum Ketones 09/26/17 09/26/17 09/26/17 05:39 05:39 05:39 WBC 19.5 H RBC 4.62 Hgb 14.0 Hct 41.3 MCV 89.5 MCH 30.3 MCHC 33.8 RDW 14.1 Plt Count 259 MPV 9.8 Neut % (Auto) 84.5 H Lymph % (Auto) 9.6 L [place] % (Auto) 5.2 Eos % (Auto) 0.3 Baso % (Auto) 0.4 Neut # (Auto) 16.4 H Lymph # (Auto) 1.9 [place] # (Auto) 1.0 H Eos # (Auto) 0.1 Baso # (Auto) 0.1 Neutrophils % (Manual) 81 H Band Neutrophils % 4 H Lymphocytes % (Manual) 11 L Monocytes % (Manual) 4 Platelet Estimate Normal RBC Morphology Normal Puncture Site pCO2 pO2 HCO3 ABG pH ABG Total CO2 ABG O2 Saturation ABG Base Excess ABG Hemoglobin ABG Carboxyhemoglobin POC ABG HHb (Measured) ABG Methemoglobin Nixon Test A-a O2 Difference Respiratory Index Hgb O2 Saturation FiO2 Sodium 148 Potassium 3.6 Chloride 105 Carbon Dioxide 25 Anion Gap 22 H BUN 30 H Creatinine 0.9 Est GFR ( Amer) > 60 Est GFR (Non-Af Amer) > 60 POC Glucose (mg/dL) Random Glucose 153 H Hemoglobin A1c 8.7 H Calcium 8.5 L Phosphorus 1.9 L Magnesium 1.9 Total Bilirubin 0.7 AST 19 ALT 21 Alkaline Phosphatase 98 Total Protein 7.6 Albumin 4.4 Globulin 3.2 Albumin/Globulin Ratio 1.4 Lipase Urine Color Urine Clarity Urine pH Ur Specific [place] Urine Protein Urine Glucose (UA) Urine Ketones Urine Blood Urine Nitrate Urine Bilirubin Urine Urobilinogen Ur Leukocyte Esterase Urine WBC (Auto) Urine RBC (Auto) Urine Opiates Screen Urine Methadone Screen Ur Barbiturates Screen Ur Phencyclidine Scrn Ur Amphetamines Screen U Benzodiazepines Scrn U Oth Cocaine Metabols U Cannabinoids Screen Serum Ketones 09/26/17 09/26/17 09/26/17 06:14 06:52 07:17 WBC RBC Hgb Hct MCV MCH MCHC RDW Plt Count MPV Neut % (Auto) Lymph % (Auto) [place] % (Auto) Eos % (Auto) Baso % (Auto) Neut # (Auto) Lymph # (Auto) [place] # (Auto) Eos # (Auto) Baso # (Auto) Neutrophils % (Manual) Band Neutrophils % Lymphocytes % (Manual) Monocytes % (Manual) Platelet Estimate RBC Morphology Puncture Site pCO2 pO2 HCO3 ABG pH ABG Total CO2 ABG O2 Saturation ABG Base Excess ABG Hemoglobin ABG Carboxyhemoglobin POC ABG HHb (Measured) ABG Methemoglobin Nixon Test A-a O2 Difference Respiratory Index Hgb O2 Saturation FiO2 Sodium Potassium Chloride Carbon Dioxide Anion Gap BUN Creatinine Est GFR ( Amer) Est GFR (Non-Af Amer) POC Glucose (mg/dL) 139 H 128 H 120 H Random Glucose Hemoglobin A1c Calcium Phosphorus Magnesium Total Bilirubin AST ALT Alkaline Phosphatase Total Protein Albumin Globulin Albumin/Globulin Ratio Lipase Urine Color Urine Clarity Urine pH Ur Specific [place] Urine Protein Urine Glucose (UA) Urine Ketones Urine Blood Urine Nitrate Urine Bilirubin Urine Urobilinogen Ur Leukocyte Esterase Urine WBC (Auto) Urine RBC (Auto) Urine Opiates Screen Urine Methadone Screen Ur Barbiturates Screen Ur Phencyclidine Scrn Ur Amphetamines Screen U Benzodiazepines Scrn U Oth Cocaine Metabols U Cannabinoids Screen Serum Ketones 09/26/17 09/26/17 09/26/17 07:57 08:00 11:04 WBC RBC Hgb Hct MCV MCH MCHC RDW Plt Count MPV Neut % (Auto) Lymph % (Auto) [place] % (Auto) Eos % (Auto) Baso % (Auto) Neut # (Auto) Lymph # (Auto) [place] # (Auto) Eos # (Auto) Baso # (Auto) Neutrophils % (Manual) Band Neutrophils % Lymphocytes % (Manual) Monocytes % (Manual) Platelet Estimate RBC Morphology Puncture Site pCO2 pO2 HCO3 ABG pH ABG Total CO2 ABG O2 Saturation ABG Base Excess ABG Hemoglobin ABG Carboxyhemoglobin POC ABG HHb (Measured) ABG Methemoglobin Nixon Test A-a O2 Difference Respiratory Index Hgb O2 Saturation FiO2 Sodium 145 Potassium 3.8 Chloride 106 Carbon Dioxide 27 Anion Gap 16 BUN 31 H Creatinine 0.9 Est GFR ( Amer) > 60 Est GFR (Non-Af Amer) > 60 POC Glucose (mg/dL) 128 H 158 H Random Glucose 120 H Hemoglobin A1c Calcium 8.6 Phosphorus Magnesium Total Bilirubin AST ALT Alkaline Phosphatase Total Protein Albumin Globulin Albumin/Globulin Ratio Lipase Urine Color Urine Clarity Urine pH Ur Specific [place] Urine Protein Urine Glucose (UA) Urine Ketones Urine Blood Urine Nitrate Urine Bilirubin Urine Urobilinogen Ur Leukocyte Esterase Urine WBC (Auto) Urine RBC (Auto) Urine Opiates Screen Urine Methadone Screen Ur Barbiturates Screen Ur Phencyclidine Scrn Ur Amphetamines Screen U Benzodiazepines Scrn U Oth Cocaine Metabols U Cannabinoids Screen Serum Ketones
[2017-09-27 01:39] VITALS: RESP 18
[2017-09-27] MEDS: (Novolog) Insulin Aspart, Recombinant 100 u/ml 10 ml vial SC SCH ×3 (08:25→17:09)
[2017-09-27] MEDS: (Novolog Mix 70/30) Insulin Aspart/Insulin Aspar 100 units/ml SC SCH ×2 (10:01→17:09)
--- NOTE | 2017-09-27 11:50 | CT ---
PROCEDURE: CT scan abdomen pelvis dated 09/27/2017. HISTORY: Abdominal pain COMPARISON: Comparison made with prior CT scan abdomen pelvis dated 05/11/2017 TECHNIQUE: Contiguous axial images of the abdomen and pelvis performed without oral or intravenous contrast material. Additional 2 dimensional sagittal and coronal reformats generated. Radiation dose: Total exam DLP = This CT exam was performed using one or more of the following dose reduction techniques: Automated exposure control, adjustment of the mA and/or kV according to patient size, and/or use of iterative reconstruction technique. FINDINGS: LOWER THORAX: There is a small hiatal hernia with wall thickening distal esophagus likely due to protrusion of gastric mucosa. Possibility of esophagitis or other intrinsic wall lesion not excluded. Lung bases are clear. No infiltrate effusion or basilar pneumothorax. LIVER: Liver is enlarged measuring nearly 20 cm in CC dimension. . No obvious hepatic mass or collection seen on the noncontrast exam. GALLBLADDER AND BILE DUCTS: Unrem gallbladder is physiologically distended. No evidence intraluminal gallbladder calculi. PANCREAS: The pancreas appears grossly unremarkable so far as can be seen. Note that evaluation of the pancreas is somewhat limited due to the lack of oral and intravenous contrast material as well as paucity of intra - retroperitoneal fat. SPLEEN: Spleen exhibits normal size and attenuation pattern without mass collection or calcification. ADRENALS: Adrenal glands are mildly prominent. KIDNEYS AND URETERS: Kidneys demonstrates symmetric size. No evidence of nephrolithiasis or hydronephrosis. BLADDER: Grossly unr urinary bladder is physiologically distended. No evidence of intraluminal urinary bladder calculi. REPRODUCTIVE: Grossly unremarkable as visualized. APPENDIX: What probably represents normal appendix best seen on axial image number [id number]. No periappendiceal inflammatory changes BOWEL: Evaluation of the bowel limited due the lack of oral contrast material. Stomach is incompletely distended which in part accounts thick-walled appearance. Possibility of gastritis or other intrinsic -invasive wall lesion not excluded. . Visualized loops small bowel exhibit normal contour and caliber. No evidence acute mechanical small bowel obstruction. Stool and air seen throughout the large bowel. No definitive evidence of abnormal mural wall thickening. PERITONEUM: Unremarkable. No fluid collection. No free air. LYMPH NODES: Unremarkable. No enlarged lymph nodes. VASCULATURE: Unremarkable. No aortic aneurysm. BONES: No fracture or destructive lesion. OTHER FINDINGS: None. IMPRESSION: No acute intra abdominal pathology seen on this limited study. Hepatomegaly.
[2017-09-27 16:34] VITALS: BP 147/91; PULSE 70; TEMP 98.6; O2SAT 96
--- NOTE | 2017-09-27 17:54 | CP.PCM.PN ---
Subjective - Date & Time of Evaluation Date of Evaluation: 09/27/17 Time of Evaluation: 11:20 - Subjective Subjective: clinically same Objective - Vital Signs/Intake and Output Vital Signs (last 24 hours): Temp Pulse Resp BP Pulse Ox 98.6 F 70 18 147/91 H 96 09/27/17 16:33 09/27/17 16:33 09/27/17 16:33 09/27/17 16:33 09/27/17 16:33 Intake and Output: 09/27/17 09/27/17 06:59 18:59 Intake Total 548 300 Balance 548 300 - Medications Medications: Current Medications Amlodipine Besylate (Norvasc) 10 mg PO DAILY [facility] Last Admin: 09/27/17 16:29 Dose: 10 mg Insulin Aspart (Novolog Mix 70/30 (70/30 Units/Ml)) 20 units SC BID [facility] Last Admin: 09/27/17 17:09 Dose: Not Given Insulin Aspart (Novolog) [address] [facility] PRN Reason: Protocol Last Admin: 09/27/17 17:09 Dose: Not Given Metoclopramide HCl (Reglan) 10 mg IVP ACHS [facility] Last Admin: 09/27/17 16:29 Dose: 10 mg Morphine Sulfate (Morphine) 2 mg IVP Q6H PRN PRN Reason: Pain, severe (8-10) Last Admin: 09/27/17 14:21 Dose: 2 mg Pantoprazole Sodium (Protonix Inj) 40 mg IVP DAILY [facility] Last Admin: 09/27/17 10:01 Dose: 40 mg - Labs Labs: 09/26/17 05:39 09/26/17 08:00 - Constitutional Appears: Well - Head Exam Head Exam: ATRAUMATIC, NORMAL INSPECTION, NORMOCEPHALIC - Eye Exam Eye Exam: EOMI, Normal appearance, PERRL Pupil Exam: NORMAL ACCOMODATION, PERRL - ENT Exam ENT Exam: Mucous Membranes Moist, Normal Exam - Neck Exam Neck Exam: Full ROM, Normal Inspection. absent: Lymphadenopathy - Respiratory Exam Respiratory Exam: Decreased Breath Sounds - Cardiovascular Exam Cardiovascular Exam: REGULAR RHYTHM, +S1, +S2 - GI/Abdominal Exam GI & Abdominal Exam: Soft, Diminished Bowel Sounds - Rectal Exam Rectal Exam: Deferred
[2017-09-27] MEDS ORDERED: Dextrose 50% VIAL Inj (50 ml) IV ONE (18:04)
[2017-09-27] MEDS ORDERED: (Lantus) Insulin Glargine, Recombinant SC SCH (22:00)
[2017-09-27] MEDS ORDERED: (Novolog) Insulin Aspart, Recombinant 100 u/ml 10 ml vial SC SCH (22:00)
--- NOTE | 2017-09-27 23:33 | CARD ---
APPROVED REPORT EKG Measurement Heart [id number] 130P89 [id number] <Conclusion> Normal sinus rhythm Biatrial enlargement Pulmonary disease pattern Nonspecific ST abnormality Abnormal ECG
--- NOTE | 2017-09-28 04:02 | CON ---
DATE: ENDOCRINOLOGY CONSULT LOCATION: Room 563. HISTORY OF PRESENT ILLNESS: This is a 32-year-old male with known history of type 1 insulin dependent diabetes and underlying gastroparesis who was admitted here with intractable vomiting and supervening diffuse abdominal pain and was evaluated to be in diabetic ketoacidosis and is now being referred for diabetic evaluation and management. PAST MEDICAL HISTORY: As mentioned above, history of type 1 insulin dependent diabetes, currently on Novolog 70/30 taken as 25 units b.i.d. and denies use of any basal insulin overnight as noted. FAMILY HISTORY: Positive for diabetes and hypertension. SOCIAL HISTORY: Has polysubstance abuse with nicotine dependence and cannabis or marijuana use with social alcohol use. REVIEW OF SYSTEMS: As mentioned above, admits to generalized body weakness with easy fatigability and tiredness and suboptimal energy level. Also admits to episodic dizziness and lightheadedness, worse on the day of admission. No chest pain, palpitations, or PND. His oral intake has been variable and suboptimal with nausea, dyspepsia, and supervening diffuse abdominal pain with intractable vomiting episodes as noted. Also admits to marked polyuria, nocturia and polydipsia as noted. PHYSICAL EXAMINATION: GENERAL: He is an average-built male, in no apparent distress. VITAL SIGNS: Blood pressure of 140/80, pulse of 90 beats per minute and regular, temperature 98, respirations 20, height is 5 feet 5 inches, and weight is 134 pounds. HEENT: Head is normocephalic. Eyes are nonicteric with pink conjunctivae. Funduscopy is not possible at this time. Ears, nose and throat, otherwise, normal. NECK: Supple. Thyroid gland is normal in size. No carotid bruits or cervical adenopathy. CARDIOPULMONARY: Some adynamic precordium. S1 and S2 is rapid and regular. LUNGS: Clear to auscultation. ABDOMEN: Flat, soft with positive bowel sounds. EXTREMITIES: No peripheral edema, pulses are +2 bilaterally. LABORATORY DATA: His chemistries today showed BUN of 51, sodium 145, potassium 3.8, chloride 106, CO2 of 27, glucose 120, and creatinine is 0.9. His glucose levels have ranged from 77 to 158 and 254 mg/dL this morning. The latest glucose; however, tonight is 45, 46, and 48 mg/dL. ASSESSMENT: This is a 32-year-old male with uncontrolled and decompensated type 1 insulin-dependent diabetes with extremes of glycemic fluctuations related to the variability of his oral intake with suboptimal meal portions at this time because of persistent nausea, dyspepsia and upper abdominal pain. He presented here with intractable vomiting episodes and mild diabetic ketoacidosis as noted. He still has persistent prerenal azotemia and dehydration as noted. PLAN OF MANAGEMENT: We will modify the current insulin regimen of more basal and bolus physiologic combination of Novolog given as plain Novolog insulin analogue at a small dose of 6 units subcu t.i.d. before meals prescribed tomorrow morning as ordered. We will modify the coverage scale to obviate hypoglycemia and detailed orders have been given for Novolog coverage scale as given and ordered. We will add Lantus given as 10 units subcu at bedtime daily to start tonight. We will modify the coverage scale to obviate hypoglycemia and detailed orders have been given. We will follow up with you. Heena Pinto MD
[2017-09-28] MEDS ORDERED: (Novolog) Insulin Aspart, Recombinant 100 u/ml 10 ml vial SC SCH (07:30)
== END 2017-09-27 21:50 | disposition left against medical advice (07) | DRG 295 ==
LOC: C.ER 21:15 → C.9E 09-26 00:20 → C.9I 09-26 01:17 → C.5S 09-27 01:34
PROVIDERS: ADMIT Internal Medicine Nephrology; ATTEND Internal Medicine Nephrology
DX: E10.10 Type 1 diabetes mellitus with ketoacidosis without coma (principal); K31.84 Gastroparesis; E10.43 Type 1 diabetes mellitus with diabetic autonomic (poly)neuropathy; F17.210 Nicotine dependence, cigarettes, uncomplicated; F12.10 Cannabis abuse, uncomplicated; Z79.4 Long term (current) use of insulin